=== PATIENT | female | born 1950 | race African-American/Black ===

== ENCOUNTER 2017-05-13 10:14 | Emergency (ER) | payer MEDICARE ==
[2017-05-13 11:05] LABS: #Eosinphils 0.3 thou/uL (0.0-0.7); #Lymphocytes 2.2 thou/uL (1.20-3.40); #Monocytes 0.4 thou/uL (0.11-0.59); #Neutrophils 2.9 thou/uL (1.40-6.50); %Basophils 0.7 % (0.0-1.0); %Eosinophils 4.6 % (0.0-10.0); %Lymphocytes 38.1 % (21.0-51.0); %Monocytes 6.5 % (0.0-10.0); Hematocrit 42.6 % (36.0-47.0); Mean Platelet Volume 7.4 fL (7.4-10.4); Red Blood Cell (RBC) Count 4.65 mill/uL (4.20-5.40); White Blood Cell (WBC) Count 5.8 thou/uL (4.8-10.8)
--- NOTE | 2017-05-13 11:23 | RAD ---
RADIOGRAPH CHEST 1 VIEW: Date: 05/13/2017 Time: 10:48 a.m. HISTORY: A 67-year-old female with chest tightness. COMPARISON: 03/28/2017 FINDINGS: Again noted are the sternotomy wires and the surgical clips overlying the left cardiac shadow. The cardiomediastinal silhouette is normal, with no cardiomegaly and no pulmonary vascular engorgement o r pulmonary edema. No pneumothorax. The lateral costophrenic angles are sharp. The hilar shadows are unremarkable. The previously demonstrated air space density at the right lung base has regresse d. Currently, there is mild residual infiltrate like density, and a small focal stellate component, which probably represents pulmonary scar tissue. IMPRESSION: 1. Small stellate density at the right lower lung zone, consistent with pulmonary scar. 2. This is surrounded by a mild infiltrate, which has improved compared to 03/28/2017. It is uncer tain whether this represents residua of improving previous infiltrate or whether this represents a r ecurrent or acute infiltrate. The former is slightly favored (unless the patient has a cough and fe sean). 3. Short interval follow-up chest radiograph is recommended in several days. 4. Status post coronary artery bypass graft surgery is evidence for coronary atherosclerotic disebeto POWERS [] POS: [facility]
[2017-05-13 12:00] LABS: ALT (SGPT) 14 U/L (8-55); AST (SGOT) 14 U/L (5-34); Alkaline Phosphatase 182 U/L (40-150); Anion Gap 9 mmol/L (10-20); BUN (Urea Nitrogen) 11 mg/dL (9.8-20.1); Bilirubin, Total 0.5 mg/dL (0.2-1.2); CK (CPK) 69 U/L (29-168); Calc. Creatinine Clearance 0 mL/min (70-130); Calcium 10.6 mg/dL (7.8-10.44); Carbon Dioxide 30 mmol/L (23-31); Chloride 102 mmol/L (98-107); Estimated GFR-MDRD 55; Globulin 3.7 g/dL (2.4-3.5); Protein, Total 8.4 g/dL (6.0-8.3)
[2017-05-13 12:04] LABS: Troponin I Less than 0.010 ng/mL (< 0.028)
--- OUTSIDE RECORDS SUMMARY | 2017-05-15 18:18 | XMS | Clinical Summary ---
:1950 Author Organization [facility] Address [address] [place] [address] Phone Care Team Providers Name Role Phone , Primary Care Provider Unavailable Allergies Not on File Current Medications Not on file Active Problems Not on file Social History Tobacco Use Types Packs/Day Years Used Date Never Assessed Sex Assigned at Date Recorded Not on file Last Filed Vital Signs Not on file Plan of Treatment Not on file Results Not on filefrom Last 3 Months
== END 2017-05-13 12:21 | disposition home or self-care (01) ==
LOC: ERS 10:14
DX: R07.2 Precordial pain (principal); R10.13 Epigastric pain; I10 Essential (primary) hypertension; I25.2 Old myocardial infarction; E78.5 Hyperlipidemia, unspecified; F17.210 Nicotine dependence, cigarettes, uncomplicated; Z79.82 Long term (current) use of aspirin; Z79.899 Other long term (current) drug therapy
CPT/HCPCS: 71010; 80053; 82550; 82553; 84484; 85025; 93005

== ENCOUNTER 2017-08-30 12:38 | Emergency (ER) | payer MEDICARE, OTHER ==
[2017-08-30 13:50] LABS: #Eosinphils 0.1 thou/uL (0.0-0.7); #Lymphocytes 1.4 thou/uL (1.20-3.40); #Monocytes 0.4 thou/uL (0.11-0.59); #Neutrophils 3.1 thou/uL (1.40-6.50); %Basophils 0.5 % (0.0-1.0); %Eosinophils 1.8 % (0.0-10.0); %Lymphocytes 27.8 % (21.0-51.0); %Monocytes 7.1 % (0.0-10.0); %Neutrophils 62.8 % (42.0-75.0); Hemoglobin 14.5 g/dL (12.0-16.0); Mean Corpuscular HGB CONC 33.3 g/dL (32.0-36.0); Platelet Count 184 thou/uL (130-400); RBC Distribution Width 13.1 % (11.5-14.5); Red Blood Cell (RBC) Count 4.99 mill/uL (4.20-5.40)
[2017-08-30 14:16] LABS: ALT (SGPT) 17 U/L (8-55); AST (SGOT) 23 U/L (5-34); Albumin 4.4 g/dL (3.4-4.8); Alkaline Phosphatase 121 U/L (40-150); Anion Gap 19 mmol/L (10-20); BUN (Urea Nitrogen) 26 mg/dL (9.8-20.1); Bilirubin, Total 0.4 mg/dL (0.2-1.2); Calc. Creatinine Clearance 0 mL/min (70-130); Calcium 9.8 mg/dL (7.8-10.44); Carbon Dioxide 22 mmol/L (23-31); Chloride 96 mmol/L (98-107); Estimated GFR-MDRD 43; Globulin 4.1 g/dL (2.4-3.5); Glucose 84 mg/dL (80-115); Potassium 4.1 mmol/L (3.5-5.1); Protein, Total 8.5 g/dL (6.0-8.3); Sodium 133 mmol/L (136-145)
== END 2017-08-30 17:21 | disposition left against medical advice (07) ==
LOC: ERS 12:38
DX: Z53.21 Procedure and treatment not carried out due to patient leaving prior to being seen by health care provider (principal)
CPT/HCPCS: 36415; 80053; 85025

== ENCOUNTER 2018-03-24 15:11 | Emergency (ER) | payer MEDICARE, OTHER ==
--- NOTE | 2018-03-24 15:44 | RAD ---
PA AND LATERAL OF THE CHEST: INDICATION: History of cough. COMPARISON: Prior exam dated 05/13/17. FINDINGS: There is stable postsurgical change of prior CABG. Mild cardiomegaly is stable. There is stable sca rring in the right lower lobe. No acute osseous abnormality is grossly evident. There is suspected bullous change involving the posterior aspect of the right lower lobe best seen on the lateral projec tion. This measures approximately 5 cm in size. IMPRESSION: Stable suspected scarring in the right lower lobe with associated bullous changes best seen on the la teral projection. No airspace consolidation to suggest acute pneumonia. There is stable mild cardio megaly. There are stable postsurgical changes of a prior coronary artery bypass graft. POS: [facility]
[2018-03-24] MEDS ORDERED: cloNIDine 0.1 MG TAB ONE (17:27)
== END 2018-03-24 19:10 | disposition home or self-care (01) ==
LOC: ERS 15:11
DX: J20.9 Acute bronchitis, unspecified (principal); I10 Essential (primary) hypertension; Z87.891 Personal history of nicotine dependence
CPT/HCPCS: 71046; 94640; J7620

== ENCOUNTER 2019-06-16 00:24 | Inpatient (IN) | payer MEDICARE ==
[2019-06-16] MEDS ORDERED: Pantoprazole 40 MG VIAL ONE (00:46)
[2019-06-16 01:00] LABS: #Basophils 0.1 thou/uL (0.0-0.2); #Eosinphils 0.2 thou/uL (0.0-0.7); #Monocytes 0.3 thou/uL (0.11-0.59); #Neutrophils 2.2 thou/uL (1.40-6.50); %Basophils 1.3 % (0.0-1.0); %Eosinophils 4.5 % (0.0-10.0); %Lymphocytes 41.6 % (21.0-51.0); %Monocytes 6.4 % (0.0-10.0); %Neutrophils 46.1 % (42.0-75.0); Hemoglobin 13.3 g/dL (12.0-16.0); Mean Corpuscular HGB CONC 32.8 g/dL (32.0-36.0); Mean Corpuscular Hemoglobin 29.1 pg (27.0-31.0); Mean Corpuscular Volume 88.6 fL (78.0-98.0); Mean Platelet Volume 8.5 fL (7.4-10.4); Platelet Count 213 thou/uL (130-400); RBC Distribution Width 12.6 % (11.5-14.5); Red Blood Cell (RBC) Count 4.58 mill/uL (4.20-5.40); White Blood Cell (WBC) Count 4.7 thou/uL (4.8-10.8)
[2019-06-16 01:06] LABS: Prothrombin Time 12.8 SEC (12.0-14.7)
[2019-06-16 01:22] LABS: PTT 22.6 SEC (22.9-36.1)
[2019-06-16 01:27] LABS: ALT (SGPT) 23 U/L (8-55); AST (SGOT) 28 U/L (5-34); Albumin 4.3 g/dL (3.4-4.8); Alkaline Phosphatase 177 U/L (40-110); Anion Gap 13 mmol/L (10-20); BUN (Urea Nitrogen) 14 mg/dL (9.8-20.1); Bilirubin, Total 0.3 mg/dL (0.2-1.2); Calc. Creatinine Clearance 0 mL/min (70-130); Calcium 9.1 mg/dL (7.8-10.44); Carbon Dioxide 23 mmol/L (23-31); Chloride 106 mmol/L (98-107); Estimated GFR-MDRD 46; Globulin 3.3 g/dL (2.4-3.5); Glucose 125 mg/dL (80-115); Potassium 3.8 mmol/L (3.5-5.1); Protein, Total 7.6 g/dL (6.0-8.3); Sodium 138 mmol/L (136-145)
[2019-06-16] MEDS ORDERED: Piperacillin/Tazobactam 4.5 GM VIAL ONE (03:28)
[2019-06-16] MEDS ORDERED: Bisacodyl 5 MG TAB PO PRN (04:33)
[2019-06-16] MEDS ORDERED: Acetaminophen 650 MG Suppository PR PRN (04:33)
[2019-06-16] MEDS ORDERED: Acetaminophen 325 MG TAB PO PRN (04:33)
[2019-06-16] MEDS ORDERED: Ondansetron PF 4 MG/2 ML Vial IVP PRN (04:33)
[2019-06-16] MEDS ORDERED: Vancomycin HCl 1 GM in Premix Bag 1 BAG IVPB SCH (04:45)
[2019-06-16 04:55] LABS: Hemoglobin 12.3 g/dL (12.0-16.0)
--- NOTE | 2019-06-16 05:06 | HP ---
PRIMARY CARE PROVIDER: Tereso Zaman MD CHIEF COMPLAINT: Coughing blood. HISTORY OF PRESENT ILLNESS: Ms. Telles is a pleasant 69-year-old lady, who was seen at [facility] on June 16, 2019. She reports that she coughed blood twice over the last couple of days. Her granddaughter also noticed that she had blood in her pants. She was encouraged to go to the emergency room by her granddaughter. The patient denies any chest pain or shortness of breath. She denies any fevers. She denies any abdominal pain. She reports that she coughed blood before she had heart attack a couple of years ago. REVIEW OF SYSTEMS: All systems were reviewed and found to be negative except for the pertinent positives mentioned above. PAST MEDICAL HISTORY: Coronary artery disease, hypertension, myocardial infarction, dyslipidemia. PAST SURGICAL HISTORY: Three-vessel coronary artery bypass graft and hysterectomy. SOCIAL HISTORY: The patient denies tobacco use or alcohol use. She is an ex-smoker. She denies recreational drug use. FAMILY HISTORY: Brother with pacemaker. ALLERGIES: NO KNOWN DRUG ALLERGIES. CURRENT MEDICATIONS: These need to be clarified, but the patient appears to be taking 1. Plavix 75 mg daily. 2. Pravastatin 40 mg daily. 3. Aspirin 81 mg daily. 4. Carvedilol 12.5 mg 2 times a day. PHYSICAL EXAMINATION: GENERAL: On examination, Ms. Telles is awake and alert, not in acute distress. VITAL SIGNS: Blood pressure is 172/85, pulse 78, respiratory rate 19, and oxygen saturation 99% on room air. She is afebrile. EYES: No scleral icterus, no conjunctival pallor. ENT: Moist mucosal membranes. No oropharyngeal erythema or exudates. NECK: Supple, nontender, trachea is midline. RESPIRATORY: Accessory muscles of breathing are not active. Chest wall movements are symmetric bilaterally. Lungs are clear to auscultation without wheeze, rhonchi, or crepitations. CARDIOVASCULAR: S1 and S2 are heard, regular. Peripheral pulses palpable. ABDOMEN: Soft, nontender, bowel sounds heard. NEUROLOGIC: Cranial nerves 2 through 12 are intact. MUSCULOSKELETAL: Power is 5/5 in all 4 extremities. SKIN: No rashes. LYMPHATIC: No cervical lymphadenopathy. PSYCHIATRIC: Normal mood, normal affect, the patient is oriented to person, place, and time. LABORATORY DATA: Ms. Telles's labs and investigations were reviewed. She had CT angiogram of the chest, which did not show any evidence of pulmonary embolism or thoracic aortic dissection. She had mild, up to 3 cm ectasia/aneurysm of ascending thoracic aorta. She had suspected right lower lobe consolidation/pneumonia with areas of necrosis/cavitation. She had multifocal areas, hazy opacity, right middle and bilateral lower lobes, possible areas, inflammation versus edema. She has leukopenia with 4700 white cells, of which 46% are neutrophils. Hemoglobin and platelet count are normal. INR is 1.0. Creatinine is elevated at 1.37, it was 1.48 on August 30, 2017. Alkaline phosphatase is elevated at 177. It was 121 on August 30, 2017, elevated at 182 on May 13, 2017. Chem-7 is otherwise unremarkable. Lactic acid is normal. ASSESSMENT AND PLAN: Ms. Telles is a pleasant 69-year-old lady, who was seen at [facility] on June 16, 2019. Her problem list includes: 1. Hemoptysis: Ms. Telles is presenting with hemoptysis, most likely secondary to pneumonia. She will be admitted to the hospital for further management. 2. Pneumonia: She has received vancomycin and Zosyn in the emergency room, which I will continue. Pulmonology service is being consulted for opinion and help with management. 3. Coronary artery disease: We will resume home medications once they are clarified. 4. Hypertension: Resume home medications, monitor vital signs and titrate antihypertensives as needed. 5. Dyslipidemia: Continue statin. 6. Coronary artery disease: Appears to be stable, the patient denies any chest pain. 7. Lower gastrointestinal bleed: The patient denies any abdominal pain, could be diverticular bleed versus hemorrhoidal. GI service is being consulted for opinion and help with management. We will recheck H and H. Many thanks for allowing me to participate in your patient's care. Please feel free to contact me with any questions or concerns. LEVEL OF RISK: Moderate. LEVEL OF COMPLEXITY: Moderate. Job ID: [id number]
[2019-06-16 05:16] VITALS: BMI 21.7
[2019-06-16] MEDS: hydrALAZINE 20 MG/ML VIAL SLOW IVP PRN (05:39)
[2019-06-16] MEDS ORDERED: Piperacillin/Tazobactam 4.5 GM in Sodium Chloride 0.9% 100 ML IVPB SCH (06:00)
[2019-06-16] MEDS ORDERED: FLU VACC TS2019-20(65YR UP)/PF 180 MCG/0.5 ML SYRINGE IM ONE (06:00)
--- NOTE | 2019-06-16 07:43 | CT ---
PRELIMINARY REPORT/[facility]/EMERGENCY AFTER HOURS PROCEDURE: PROCEDURE INFORMATION: Exam: CT Angiography Chest With Contrast Exam date and time: 06/16/2019 1:44 AM Age: 69 years old Clinical history: Cough with hemorrhage; Patient HX: 69f presents for evaluation of cough since yeste rday which she says is productive, sputum is bright red and bloody. PT also C/O mansi red blood in st ool and on her pants. PT says she came in because her granddaughter encouraged her. Endorses SOB. Pmhx includes cabg, mi. TECHNIQUE: Imaging protocol: Computed tomographic angiography of the chest with intravenous contrast. 3D rendering: MIP reconstructed images were created and reviewed. COMPARISON: No relevant prior studies available. FINDINGS: Pulmonary arteries: Adequate contrast enhancement of the pulmonary arteries. Aorta: No evidence of thoracic aortic dissection. Mild up to 3 cm ectasia/aneurysm of ascending thora cic aorta. Chronic atherosclerotic calcification of the vasculature. Lungs: Moderate linear and patchy air space disease in right lower lobe with area central cavitation/ necrosis. Multifocal areas hazy opacity right middle and bilateral lower lobes, possible areas inflam mation vs. edema. No evidence endobronchial lesion. Pleural space: No evidence of pneumothorax. Heart: Heart appears within normal limits, no pericardial effusion. No evidence of filling defects in the cardiac chambers. Lymph nodes: Few subcentimeter mediastinal lymph nodes. Bones/joints: Musculoskeletal structures appear intact. Multi-level degenerative changes involve the thoracic spine. Sternal sutures. Soft tissues: Unremarkable. IMPRESSION: 1. No evidence of pulmonary embolism. 2. No evidence of thoracic aortic dissection. 3. 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 4. Suspected right lower lobe consolidation/ pneumonia with areas necrosis/cavitation. 5. Multifocal areas hazy opacity right middle and bilateral lower lobes, possible areas inflammation vs. edema. Thank you for allowing us to participate in the care of your patient. Dictated and Authenticated by: Rodger Ruiz MD 06/16/2019 2:21 AM Central Time ([place] & [place]) FINAL REPORT EMERGENCY AFTER HOURS CTA CHEST: FINDINGS/IMPRESSION: I agree with the findings and impression given in the preliminary report per [facility] physician. 1. No evidence of pulmonary thromboembolism. 2. Right lower lobe infiltrate with areas of cavitation. POS: [facility]
[2019-06-16] MEDS ORDERED: Docusate 100 MG CAP PO PRN (09:42)
[2019-06-16] MEDS ORDERED: Labetalol HCl 100 MG/20 ML VIAL SLOW IVP PRN (09:42)
[2019-06-16] MEDS ORDERED: diphenhydrAMINE 25 MG CAP PO PRN (09:42)
[2019-06-16] MEDS ORDERED: Melatonin 3 MG TAB PO PRN (09:42)
[2019-06-16] MEDS ORDERED: Benzonatate 100 MG CAP PO PRN (09:42)
[2019-06-16] MEDS ORDERED: Lisinopril 5 MG TAB PO SCH ×2 (09:44→10:00)
[2019-06-16] MEDS ORDERED: Carvedilol 6.25 MG TAB PO SCH (09:45)
[2019-06-16] MEDS: Piperacillin/Tazobactam 3.375 GM in Sodium Chloride 0.9% 100 ML IVPB SCH ×2 (11:55→17:48)
[2019-06-16] MEDS ORDERED: Iopamidol-370 76% 500 ML 1 ML ONE (12:43)
[2019-06-16] MEDS ORDERED: predniSONE 20 MG TAB PO SCH (13:15)
[2019-06-16 13:26] LABS: Hemoglobin 12.4 g/dL (12.0-16.0)
--- NOTE | 2019-06-16 13:48 | CON ---
DATE OF CONSULTATION: 06/16/2019 CHIEF COMPLAINT: Rectal bleeding. HISTORY OF PRESENT ILLNESS: Ms. Telles is a 69-year-old female, who was brought to the ER by her granddaughter. Her primary complaint on admission was coughing up blood for the last 2 days prior to admission. She reports having chronic cough for the last several weeks. She denies any weight loss, fever, night sweats, or chills. Reportedly prior to admission, her granddaughter noted that her pants were stained with blood. The patient herself was not aware that she had any rectal bleeding or lower GI bleed. She has not had any nausea or vomiting. She does report some abdominal soreness with coughing, but nothing localizing or significant. She reports having normal bowel function with occasional bright red blood bleeding attributed to hemorrhoids. She never had screening colonoscopy in the past. There is no previous gastrointestinal problem. PAST MEDICAL HISTORY: 1. Coronary artery disease, status post bypass surgery. 2. Hypertension. 3. Hyperlipidemia. ALLERGIES: NO KNOWN DRUG ALLERGY. MEDICATIONS AT HOME: Include: 1. Aspirin. 2. Plavix. 3. Coreg. 4. Pravastatin. SOCIAL HISTORY: The patient lives with her and 2 grandchildren. She does smoke a pack a week. Occasional beer, once a week. FAMILY HISTORY: Negative for any known GI problem, liver disease, or GI malignancy. REVIEW OF SYSTEMS: Ten-point review of systems did not show any other reported symptoms or problem. PHYSICAL EXAMINATION: VITAL SIGNS: Temperature is 97.2, blood pressure 162/80, pulse of 76. GENERAL: She is alert and in no distress. HEENT: Shows anicteric sclerae. Oropharynx clear and moist. NECK: Supple. CV: Shows normal S1 and S2. Regular rate and rhythm. CHEST: Shows breath sounds. Poor excursion. ABDOMEN: Soft and nontender. There is no distention. No tympany. She has active bowel sounds. There is no appreciable organomegaly. EXTREMITIES: Show no edema. LABORATORY DATA: WBCs 4.7, hemoglobin 13.3, hematocrit 40.6, and platelet count of 213. Electrolytes within normal range. Creatinine 1.37. LFTs are normal. Alkaline phosphatase 177. IMPRESSION: 1. Reported rectal bleeding prior to admission as noted by her granddaughter without the patient's awareness. She has not had any further bleeding since admission, overnight, or this morning. She does have occasional bright red rectal bleeding that she attributed to hemorrhoids. 2. Hemoptysis with x-ray showing right lower lobe consolidation and areas of necrosis, cavitation, consistent with pneumonia. 3. Chest CT angiogram with a 3 cm ascending thoracic aortic aneurysm without dissection. RECOMMENDATION: 1. Proceed with colonoscopy as the patient never had prior colon screening. Prep today with procedure tomorrow. 2. Indication including risks discussed with Neema Telles. All questions answered. 3. Further recommendation to follow pending endoscopic finding. Job ID: [id number]
--- NOTE | 2019-06-16 14:07 | PDOC.EVN ---
Event Note - Event Note Event Note: Seen and examined. Patient states overall that she is feeling better. Has noticed some blood in stool, though she states she has hemorrhoids. Patient denies had prior history of colonoscopy. Hold anti platelet therapy until after C-scope, Hgb not significantly diminished. Patient breathing well on room air, though there are faint wheezing in the right lower lung field. Pulmonology evaluation pending, possible cavitary lesion on imaging.
--- NOTE | 2019-06-16 16:07 | CON ---
DATE OF CONSULTATION: 06/16/2019 SERVICE: Pulmonary Medicine. REASON FOR CONSULTATION: Hemoptysis. HISTORY OF PRESENT ILLNESS: The patient is a 69-year-old female with past medical history significant for essentially nothing. About 2 months ago, she started having cough on a daily basis and was bringing up yellow phlegm. She never felt sick in any way. That being said, this is new for her. She denies having any acid reflux type symptoms. Two days ago, she started having a little nausea and vomited on one occasion. She did not think much of that. This seemed to clear, she is able to keep down food afterwards. That being said, on the day of presentation, she started having massive amounts of hemoptysis. She was swallowing some of that blood and also vomiting. Sometimes, she had a little bit of bloody emesis. It is not clear if this is all stemming from the lung or the GI tract, perhaps both. She denies any hot, red, or swollen joints, rashes, arthritis, arthralgias, ever having hematuria, pleural effusion, or pericardial effusion. She currently denies any fevers or chills. Since she has been in the hospital, she was put on some antibiotics. She actually started to feel a little bit better. She is still coughing, but not bringing up any phlegm any longer. PAST MEDICAL HISTORY: 1. Coronary artery disease. 2. Hypertension. 3. Dyslipidemia. 4. History of myocardial infarction. PAST SURGICAL HISTORY: 1. Coronary artery bypass graft x3 vessels. 2. Hysterectomy. SOCIAL HISTORY: She smokes on a daily basis. She denies any recreational drug use or alcohol. She has no exposure to chemicals, dust, asbestos, or tuberculosis. FAMILY HISTORY: Noncontributory. ALLERGIES: NO KNOWN DRUG ALLERGIES. MEDICATIONS: List of her inpatient medications was reviewed. No specific updates were made at this time. REVIEW OF SYSTEMS: General; head, ears, eyes, nose, and throat; cardiovascular; respiratory; GI; ; musculoskeletal; neurologic; and skin is negative except as mentioned is the HPI. PHYSICAL EXAMINATION: VITAL SIGNS: Afebrile, pulse 69, blood pressure 150/79, respirations 16, saturation 98% currently on room air. GENERAL: The patient is awake and alert, in no apparent distress. LUNGS: Decent air entry. There are some rhonchi on the right. No prolonged expiratory phase or wheezing is appreciated. HEART: Normal rate. Regular. ABDOMEN: Soft, nontender, and nondistended. Bowel sounds are positive. MUSCULOSKELETAL: No cyanosis or clubbing. There is no pitting in the bilateral lower extremities. NEUROLOGIC: Grossly nonfocal. LABORATORY DATA: Hemoglobins are stable at 12.4 and WBC 4.7. Differential remains normal. INR 1.0. Creatinine 1.37. Basic metabolic profile, liver function studies, and lactate are unremarkable. IgG 1142, IgA 268, and IgM 36, all falling within the normal limits. IMAGING STUDIES: CTA of the chest demonstrates no evidence of a PE. She has bronchiectasis in the bibasilar regions, which is a little bit worse on the right compared to the left. There is an infiltrate on the right posterior lung segments. The bronchiectasis seems to be quite a bit more severe in that region, there may be a cavitary lesion present. There is a small amount of infiltrate. Subtle ground-glass opacifications are present in the centrilobular distribution in that area. That being said, she has a massively dilated left atrium, and subtle evidence of volume overload including interstitial fullness, and prominent intrapulmonary lymph nodes/small pulmonary nodules scattered throughout bilateral lung ramos. ASSESSMENT: 1. Massive hemoptysis. 2. Bronchiectasis with acute exacerbation. 3. Pulmonary cavity. 4. Community-acquired pneumonia, possible. 5. Gastrointestinal bleed? DISCUSSION AND PLAN: We will follow up the results of the colonoscopy. That being said, we will put her through a thorough workup for both bronchiectasis and cavitary lung disease. This includes an IgE, alpha-1 antitrypsin, rheumatoid factor, osborne-ANCA, Fungitell, antibody panel, and Aspergillus studies. She will likely require repeat CT of the chest in 4 to 6 weeks in the outpatient setting. If this thing fails to clear, a bronchoscopy will certainly need to be considered. I agree with current antibiotic selection. We will give her a brief course of steroids to help decrease inflammation of any airways that may have become unroofed. My suspicion is that we will be looking at a bronchoscopy at a followup appointment, but I would like to see the results of the colon 1st. If she truly has both lung and GI bleeding that present at the same time, certainly vasculitides would need to be considered. As such, urine will be collected looking for hematuria and casts. 70 minutes have been devoted to this patient in various activities. I personally reviewed all imaging studies and laboratory data noted within this document. For fifty percent of this time, I was interacting with the patient at the bedside or coordinating care with the care team. For the remainder of the time I was immediately available to the patient in the hospital unit. Job ID: [id number] MTDD
[2019-06-16 17:32] LABS: Bilirubin Negative (Negative); Blood, Urine 1+ (Negative); Clarity Clear (Clear); Glucose, Urine (Dipstick) Normal (Negative); Leukocyte 250 Leu/uL (Negative); Nitrite Negative (Negative); Protein, Urine (Dipstick) Negative (Neg-Trace); Squamous Epithelial 0-3 HPF (0-3); Urobilinogen Normal mg/dL (Less than 2)
[2019-06-16 17:35] LABS: Bacteria/HPF 1+ HPF (None Seen)
[2019-06-16 17:36] LABS: Urine Culture Reflex Yes Yes
[2019-06-16] MEDS ORDERED: GoLYTELY 4,000 ml Bottle PO SCH (18:00)
[2019-06-16] MEDS ORDERED: Pravastatin Sodium 40 MG TAB PO SCH (21:00)
[2019-06-16] MEDS ORDERED: Non-Formulary Item 1 EACH (Carvedilol [Coreg] 12.5 MG) PO SCH (21:00)
[2019-06-16] MEDS: Carvedilol 6.25 MG TAB PO SCH (21:03)
[2019-06-16] MEDS: Atorvastatin Calcium 10 MG TAB PO SCH (21:03)
[2019-06-16 21:25] LABS: Hemoglobin 12.6 g/dL (12.0-16.0)
[2019-06-17] MEDS: Piperacillin/Tazobactam 3.375 GM in Sodium Chloride 0.9% 100 ML IVPB SCH ×4 (00:07→17:02)
[2019-06-17] MEDS: hydrALAZINE 20 MG/ML VIAL SLOW IVP PRN ×2 (00:42→17:05)
[2019-06-17] MEDS: Lisinopril 5 MG TAB PO SCH (05:40)
[2019-06-17] MEDS: predniSONE 20 MG TAB PO SCH (05:40)
[2019-06-17] MEDS: Carvedilol 6.25 MG TAB PO SCH ×2 (05:41→20:18)
[2019-06-17 05:47] LABS: #Monocytes 0.3 thou/uL (0.11-0.59); #Neutrophils 7.7 thou/uL (1.40-6.50); %Basophils 0.4 % (0.0-1.0); %Eosinophils 0.2 % (0.0-10.0); %Lymphocytes 11.2 % (21.0-51.0); %Monocytes 3.4 % (0.0-10.0); %Neutrophils 84.8 % (42.0-75.0); Hemoglobin 11.7 g/dL (12.0-16.0); Mean Corpuscular HGB CONC 32.3 g/dL (32.0-36.0); Mean Corpuscular Hemoglobin 28.1 pg (27.0-31.0); Mean Corpuscular Volume 87.1 fL (78.0-98.0); Mean Platelet Volume 8.7 fL (7.4-10.4); Platelet Count 192 thou/uL (130-400); RBC Distribution Width 12.5 % (11.5-14.5); Red Blood Cell (RBC) Count 4.18 mill/uL (4.20-5.40)
[2019-06-17] MEDS ORDERED: Vancomycin HCl 750 MG in Sodium Chloride 0.9% 250 ML 250 ML IVPB SCH (06:00)
[2019-06-17 06:03] LABS: Anion Gap 14 mmol/L (10-20); BUN (Urea Nitrogen) 9 mg/dL (9.8-20.1); Calc. Creatinine Clearance 43 mL/min (70-130); Calcium 9.4 mg/dL (7.8-10.44); Carbon Dioxide 23 mmol/L (23-31); Chloride 106 mmol/L (98-107); Estimated GFR-MDRD 64; Glucose 140 mg/dL (80-115); Potassium 3.6 mmol/L (3.5-5.1); Sodium 139 mmol/L (136-145)
--- NOTE | 2019-06-17 07:00 | PRG ---
DATE OF SERVICE: 06/17/2019 SERVICE: Pulmonary Medicine. INTERVAL HISTORY: The patient is breathing comfortably. She had a bowel prep yesterday. She cleared out for the most part, but towards the end, started having a little bit of blood. She could not tell if it is hemorrhoidal bleeding or whether or not it was actually part of the stool. She denies any fevers or chills. Otherwise, there has been no interval change to her condition. She has not had any recurrent hemoptysis present. PHYSICAL EXAMINATION: VITAL SIGNS: Afebrile, pulse 71, blood pressure 133/75, respirations 19, saturation 98%, currently on room air. GENERAL: The patient is awake and alert, in no apparent distress. LUNGS: Good air entry bilaterally. Rhonchi has improved on the right. No prolonged expiratory phase or wheezing is appreciated. HEART: Normal rate regular. ABDOMEN: Soft, nontender, nondistended, bowel sounds are positive. MUSCULOSKELETAL: No cyanosis or clubbing. There is no pitting in the bilateral lower extremities. NEUROLOGIC: Grossly nonfocal. LABORATORY DATA: Hemoglobin 11.7 and gently downtrending. Basic metabolic profile is otherwise unremarkable. Neutrophil count has increased, likely steroid effect. INR 1.0. Creatinine has improved to 1.03. Otherwise, basic metabolic profile is unremarkable. Urinalysis was significant for minimal red blood cells, and 11 to 12 white blood cells. Of note, this was a clean catch. The leukocyte esterase was marginally elevated, but nitrites were negative. Bacteria was 1+. There were very few epithelial cells present. Multiple laboratories are currently pending. ASSESSMENT: 1. Massive hemoptysis. 2. Bronchiectasis with acute exacerbation. 3. Pulmonary cavity. 4. Community acquired pneumonia, possible. 5. Gastrointestinal bleed, possible. DISCUSSION AND PLAN: The patient is going to go for an EGD and colonoscopy today. Workup for the bronchiectasis and cavitary disease is pending including IgE, alpha-1 antitrypsin, rheumatoid factor, osborne ANCA, Fungitell, fungal antibody panel, and Aspergillus studies. I will see if I can coordinate a bronchoscopy with the already scheduled procedures. Ultimately, a repeat CT of the chest is going to be required in 4 to 6 weeks to see whether or not any of these lesions persist, particularly if we do not get any answer with any of these studies or procedures. Job ID: [id number]
[2019-06-17] MEDS ORDERED: Lidocaine 1% (PF) 30 ML VIAL ONE (07:16)
[2019-06-17] MEDS ORDERED: Clopidogrel Bisulfate 75 MG TAB PO SCH (09:00)
[2019-06-17] MEDS ORDERED: Aspirin Chewable 81 MG TAB PO SCH (09:00)
[2019-06-17] MEDS ORDERED: Rocuronium Bromide 10 MG/ML (10ML VIAL) ONE (09:55)
[2019-06-17] MEDS ORDERED: Succinylcholine Chloride 20 MG/ML 10 ml SYRINGE FS ONE (09:55)
[2019-06-17] MEDS ORDERED: Lidocaine 1% PF 5 ML VIAL ONE (09:55)
[2019-06-17] MEDS ORDERED: PROPOFOL 200 MG/20 ML VIAL ONE (09:55)
[2019-06-17] MEDS ORDERED: Promethazine HCl 25 MG/ML VIAL SLOW IVP PRN (10:44)
[2019-06-17] MEDS ORDERED: Promethazine HCl 25 MG/ML VIAL IM PRN (10:44)
[2019-06-17] MEDS ORDERED: Ondansetron HCl/PF 4 MG/2 ML Vial IVP PRN (10:44)
[2019-06-17] MEDS ORDERED: Lidocaine 2% Jelly 5 ML TUBE ONE (11:15)
--- NOTE | 2019-06-17 12:57 | PRG ---
DATE OF SERVICE: 06/17/2019 Ms. Telles had a colonoscopy today that showed internal-external hemorrhoids. This is a source of her rectal bleeding. I have recommended conservative therapy with fiber and steroid suppository. For history of ongoing hemorrhage, elective hemorrhoidectomy would be the consideration. At this time, we will sign off. If I can be of any further assistance, please do not hesitate to contact me. Job ID: [id number]
[2019-06-17 14:04] LABS: BF Color Red; Body Fluid Source Bronchial Washings; Clarity Cloudy/Turbid (Clear)
[2019-06-17 14:05] LABS: BF RBC Count - Manual 15750 /cumm; BF WBC/Nonhematics Ct. - Manua 721 /cumm; Tube # EDTA
[2019-06-17 14:21] LABS: BF Segmented Neutrophils 55 %; Cell Count Non Hematic 13 %; Eosinophils 4 %; Lymphocytes 28 %
--- NOTE | 2019-06-17 14:21 | PDOC.HOSPP ---
- Subjective Subjective: Seen and examined. Patient states that she tolerated bowel prep and did have significant stool output. Patient states that she had not eaten for days prior to this so there was not much stool to come out. Patient breathing well on room air. Denies pain. All questions answered in detail. - Objective Vital Signs & Weight: Vital Signs (12 hours) Temp Pulse BP BP Pulse Ox 06/17/19 09:00 136/84 06/17/19 08:00 98 06/17/19 07:33 97.6 F 06/17/19 05:41 161/82 H 06/17/19 05:40 91 161/82 H 06/17/19 03:56 98.0 F Weight Weight 115 lb 5 oz Most Recent Monitor Data Heart Rate from ECG 87 NIBP 139/77 NIBP BP-Mean 97 Respiration from ECG 19 SpO2 100 I&O: 06/16/19 06/17/19 06/18/19 06:59 06:59 06:59 Intake Total 2089 Balance 2089 Result Diagrams: 06/18/19 04:11 06/18/19 04:11 Radiology Reviewed by me: Yes Hospitalist ROS - Review of Systems All other systems reviewed; all pertinent +/- noted in HPI/Subj - Medication Medications: Active Medications Generic Name Dose Route Start Last Admin Trade Name Freq PRN Reason Stop Dose Admin Atorvastatin Calcium 10 mg 06/16/19 21:00 06/16/19 21:03 Lipitor PO 10 mg HS ARINA Administration Carvedilol 12.5 mg 06/16/19 21:00 06/17/19 05:41 Coreg PO 12.5 mg BID ARINA Administration Hydralazine HCl 10 mg 06/16/19 04:49 06/17/19 00:42 Apresoline SLOW IVP 10 mg Q6H PRN Administration SBP Greater Than 170 Vancomycin HCl 750 mg/ Sodium 250 mls @ 250 mls/hr 06/17/19 06:00 06/17/19 05 :40 Chloride IVPB 250 mls Q24HR ARINA Administration Piperacillin Sod/Tazobactam 100 mls @ 200 mls/hr 06/16/19 12:00 06/17/19 13: 20 Sod 3.375 gm/ Sodium Chloride IVPB 100 mls Q6HR ARINA Administration Lisinopril 5 mg 06/17/19 09:00 06/17/19 05:40 Zestril PO 5 mg DAILY ARINA Administration Prednisone 40 mg 06/17/19 08:00 06/17/19 05:40 Prednisone PO 06/21/19 08:01 40 mg QAM-WM ARINA Administration Sodium Chloride 10 ml 06/16/19 09:00 06/17/19 08:55 Flush - Normal Saline IVF 10 ml Q12HR ARINA Administration - Exam General Appearance: NAD, awake alert Eye: PERRL ENT: normocephalic atraumatic, moist mucosa Neck: supple, symmetric, no JVD, no lymphadenopathy Heart: RRR, no murmur, no gallops, no rubs Respiratory: CTAB, no rales, no ronchi, normal chest expansion, wheezes (Faint right lower lung field) Gastrointestinal: soft, non-tender, no guarding, no rigidity Extremities: no edema Skin: no lesions, no rashes Neurological: cranial nerve grossly intact, no focal deficits Musculoskeletal: normal strength Psychiatric: normal affect, A&O x 3 Hosp A/P (1) Normocytic anemia Code(s): D64.9 - ANEMIA, UNSPECIFIED Status: Acute (2) Bronchiectasis Code(s): J47.9 - BRONCHIECTASIS, UNCOMPLICATED Status: Acute (3) Pneumonia Code(s): J18.9 - PNEUMONIA, UNSPECIFIED ORGANISM Status: Acute (4) CKD (chronic kidney disease) stage 2, GFR 60-89 ml/min Code(s): N18.2 - CHRONIC KIDNEY DISEASE, STAGE 2 (MILD) Status: Chronic (5) Chronic diastolic heart failure Code(s): I50.32 - CHRONIC DIASTOLIC (CONGESTIVE) HEART FAILURE Status: Chronic (6) Dyslipidemia Code(s): E78.5 - HYPERLIPIDEMIA, UNSPECIFIED Status: Chronic (7) Hypertension Code(s): I10 - ESSENTIAL (PRIMARY) HYPERTENSION Status: Chronic (8) Tobacco abuse Code(s): Z72.0 - TOBACCO USE Status: Chronic - Plan Plan: IMCU, stable for Med/ tel gastroenterology consultation, recommendations appreciated pulmonology consultation, recommendations appreciated patient with G.I. bleeding, may require endoscopy for definitive diagnosis and treatment of G.I. bleeding status post bowel prep on 06/17/2019 patient would bronchiectasis and cavitary lesion on the right lower lobe seen on imaging Bronchiectasis work up ongoing per Pulm Continue ABX blood pressure control DVT prophylaxis hold antiplatelet therapy/ anticoagulation in the setting of G.I. bleeding continue other home medications as able
--- NOTE | 2019-06-17 15:51 | OP ---
DATE OF PROCEDURE: 06/17/2019 PREPROCEDURE DIAGNOSIS: Bright red rectal bleeding. POSTPROCEDURE DIAGNOSIS: Internal and external hemorrhoids. ANESTHESIA: TIVA. RECOMMENDATIONS: 1. Daily fiber supplementation and Anusol suppositories. 2. Consider repeat colonoscopy for screening purposes in 10 years depending on health at that time. PROCEDURE IN DETAIL: After the patient was informed of the risks, benefits, and possible complications of endoscopy including perforation, bleeding, reaction to medication, and aspiration, informed consent was obtained. The patient was brought to endoscopy suite, where she was sedated in gradual fashion. Once she was comfortable, rectal exam was performed. The endoscope was inserted into the anal canal through the colon to the cecum, which was identified by the ileocecal valve and appendiceal orifice. The terminal ileum was entered and found to be normal. The scope was then slowly removed. There was good visualization of the mucosa with no mass lesions or AV malformations. There were no polyps or lesions. Retroflexed views revealed internal hemorrhoids. The scope was removed. The patient tolerated the procedure well. There were no complications. Job ID: [id number]
--- NOTE | 2019-06-17 18:03 | OP ---
DATE OF PROCEDURE: 06/17/2019 SERVICE: Pulmonary Medicine. PROCEDURES PERFORMED: Fiberoptic bronchoscopy with: 1. Visual airway inspection. 2. Endobronchial brushing from the right lower lobe. 3. Bronchoalveolar lavage from the right lower lobe. 4. Transbronchial biopsies from the right lower lobe. PREPROCEDURE DIAGNOSIS: Pulmonary cavity/infiltrate. POSTPROCEDURE DIAGNOSIS: Pulmonary cavity/infiltrate. MEDICATIONS USED: Please refer to Anesthesia documentation. PREANESTHESIA ASSESSMENT: H and P had been performed. The patient's medications and allergies were reviewed. Informed consent was obtained after discussing the risks, benefits, and rationale for performing the procedure as well as alternative options. DESCRIPTION OF PROCEDURE: A time-out was performed identifying the correct procedure and patient with name and date of . A diagnostic fiberoptic bronchoscope was introduced through the 8.0 endotracheal tube. The bronchoscope was advanced into the trachea, where a tracheobronchial tree inspection was carried out. There was clear identification of the right upper lobe, right middle lobe, right lower lobe, left upper lobe, lingula, and left lower lobe. There were multiple aberrant segments coming out of the right lower lobe. Some old blood was in the lateral and posterior segments of the right lower lobe. Endobronchial brushings were performed under fluoroscopic guidance. A BAL was then obtained from both the lateral and posterior segments of the right lower lobe. Endobronchial biopsies were then obtained from the same segments. Hemostasis was verified, and the bronchoscope was subsequently removed from the patient. Postprocedure fluoroscopy did not demonstrate a pneumothorax. FINDINGS: 1. No obvious endobronchial disease was identified. Secretions were minimal. 2. Dried blood was emanating from the lateral basal and posterobasal segments of the right lower lobe. SPECIMENS OBTAINED: 1. Pathology on BAL, brushings, transbronchial biopsy. 2. Microbiology on BAL. COMPLICATIONS: None. ESTIMATED BLOOD LOSS: 5 mL. FLUOROSCOPY TIME: 3.5 minutes. DISPOSITION: The patient will transition back to the floor when she recovers from anesthesia. Job ID: [id number]
[2019-06-17] MEDS: Atorvastatin Calcium 10 MG TAB PO SCH (20:18)
[2019-06-17] MEDS: Hydrocortisone Acetate 25 MG Suppository PR SCH (21:53)
[2019-06-18] MEDS: Piperacillin/Tazobactam 3.375 GM in Sodium Chloride 0.9% 100 ML IVPB SCH ×3 (01:13→12:23)
[2019-06-18] MEDS: hydrALAZINE 20 MG/ML VIAL SLOW IVP PRN (04:14)
[2019-06-18 05:09] LABS: #Eosinphils 0.1 thou/uL (0.0-0.7); #Lymphocytes 1.8 thou/uL (1.20-3.40); #Monocytes 0.4 thou/uL (0.11-0.59); #Neutrophils 8.4 thou/uL (1.40-6.50); %Basophils 0.3 % (0.0-1.0); %Eosinophils 0.6 % (0.0-10.0); %Lymphocytes 16.7 % (21.0-51.0); %Monocytes 4.2 % (0.0-10.0); %Neutrophils 78.2 % (42.0-75.0); Hemoglobin 10.7 g/dL (12.0-16.0); Mean Corpuscular Hemoglobin 29.1 pg (27.0-31.0); Mean Corpuscular Volume 88.3 fL (78.0-98.0); Mean Platelet Volume 8.9 fL (7.4-10.4); Platelet Count 167 thou/uL (130-400); RBC Distribution Width 12.7 % (11.5-14.5); Red Blood Cell (RBC) Count 3.69 mill/uL (4.20-5.40); White Blood Cell (WBC) Count 10.7 thou/uL (4.8-10.8)
[2019-06-18 05:19] LABS: Vancomycin, Trough 6.1 ug/mL
[2019-06-18 05:28] LABS: Anion Gap 8 mmol/L (10-20); BUN (Urea Nitrogen) 11 mg/dL (9.8-20.1); Calc. Creatinine Clearance 41 mL/min (70-130); Calcium 8.6 mg/dL (7.8-10.44); Carbon Dioxide 28 mmol/L (23-31); Chloride 111 mmol/L (98-107); Estimated GFR-MDRD 60; Glucose 112 mg/dL (80-115); Sodium 143 mmol/L (136-145)
[2019-06-18] MEDS: Vancomycin HCl 750 MG in Sodium Chloride 0.9% 250 ML 250 ML IVPB SCH ×2 (06:08→17:31)
[2019-06-18] MEDS: Carvedilol 6.25 MG TAB PO SCH ×2 (08:19→21:41)
[2019-06-18] MEDS: predniSONE 20 MG TAB PO SCH (08:19)
[2019-06-18] MEDS: Hydrocortisone Acetate 25 MG Suppository PR SCH ×2 (08:20→21:42)
[2019-06-18] MEDS: Citrucel 500 MG TAB PO SCH (08:29)
[2019-06-18] MEDS: Lisinopril 5 MG TAB PO SCH ×2 (08:31→08:33)
--- NOTE | 2019-06-18 13:15 | PDOC.HOSPP ---
- Subjective Subjective: Seen and examined. Clinically improving on maximal medical therapy. Afebrile. Patient responding to IV antibiotics. Patient tolerated colonoscopy and bronchoscopy please see for operative reports for details. - Objective Vital Signs & Weight: Vital Signs (12 hours) Temp Pulse Resp BP BP Pulse Ox 06/18/19 11:17 97.9 F 75 20 157/69 H 98 06/18/19 10:56 142/66 H 06/18/19 08:33 78 189/87 H 06/18/19 08:31 78 06/18/19 08:19 189/87 H 06/18/19 08:00 98 F 78 16 189/87 H 100 06/18/19 05:42 78 18 159/70 H 06/18/19 04:14 83 177/88 H 06/18/19 03:20 97.8 F 75 24 H 177/74 H 100 Weight Weight 115 lb 5 oz Most Recent Monitor Data Heart Rate from ECG 81 NIBP 149/61 NIBP BP-Mean 90 Respiration from ECG 18 SpO2 99 I&O: 06/17/19 06/18/19 06/19/19 06:59 06:59 06:59 Intake Total 2089 1260 120 Balance 2089 1260 120 Result Diagrams: 06/18/19 04:11 06/18/19 04:11 Radiology Reviewed by me: Yes Hospitalist ROS - Review of Systems All other systems reviewed; all pertinent +/- noted in HPI/Subj - Medication Medications: Active Medications Generic Name Dose Route Start Last Admin Trade Name Freq PRN Reason Stop Dose Admin Atorvastatin Calcium 10 mg 06/16/19 21:00 06/17/19 20:18 Lipitor PO 10 mg HS ARINA Administration Carvedilol 12.5 mg 06/16/19 21:00 06/18/19 08:19 Coreg PO 12.5 mg BID ARINA Administration Hydralazine HCl 10 mg 06/16/19 04:49 06/18/19 04:14 Apresoline SLOW IVP 10 mg Q6H PRN Administration SBP Greater Than 170 Hydrocortisone Acetate 25 mg 06/17/19 21:00 06/18/19 08:20 Anusol-Hc CT 25 mg BID ARINA Administration Piperacillin Sod/Tazobactam 100 mls @ 200 mls/hr 06/16/19 12:00 06/18/19 12: 23 Sod 3.375 gm/ Sodium Chloride IVPB 100 mls Q6HR ARINA Administration Vancomycin HCl 750 mg/ Sodium 250 mls @ 250 mls/hr 06/18/19 06:00 06/18/19 06 :08 Chloride IVPB 250 mls 0600,1800 ARINA Administration Lisinopril 10 mg 06/18/19 09:00 06/18/19 08:33 Zestril PO 10 mg DAILY ARINA Administration Methylcellulose 500 mg 06/18/19 09:00 06/18/19 08:29 Citrucel PO 500 mg DAILY ARINA Administration Prednisone 40 mg 06/17/19 08:00 06/18/19 08:19 Prednisone PO 06/21/19 08:01 40 mg QAM-WM ARINA Administration Sodium Chloride 10 ml 06/16/19 09:00 06/18/19 08:20 Flush - Normal Saline IVF 10 ml Q12HR ARINA Administration - Exam General Appearance: NAD, awake alert Eye: anicteric sclera ENT: normocephalic atraumatic, moist mucosa Neck: supple, symmetric, no lymphadenopathy Heart: no murmur, no gallops, no rubs Respiratory: no rales, no ronchi, normal chest expansion, wheezes (Right lower lobe wheezing is mild) Gastrointestinal: soft, non-tender, non-distended, no guarding, no rigidity Extremities: no edema Skin: no lesions, no rashes Neurological: cranial nerve grossly intact, no focal deficits Musculoskeletal: normal strength, no muscle wasting Psychiatric: normal affect, A&O x 3 Hosp A/P (1) Normocytic anemia Code(s): D64.9 - ANEMIA, UNSPECIFIED Status: Acute (2) Bronchiectasis Code(s): J47.9 - BRONCHIECTASIS, UNCOMPLICATED Status: Acute (3) Pneumonia Code(s): J18.9 - PNEUMONIA, UNSPECIFIED ORGANISM Status: Acute (4) CKD (chronic kidney disease) stage 2, GFR 60-89 ml/min Code(s): N18.2 - CHRONIC KIDNEY DISEASE, STAGE 2 (MILD) Status: Chronic (5) Chronic diastolic heart failure Code(s): I50.32 - CHRONIC DIASTOLIC (CONGESTIVE) HEART FAILURE Status: Chronic (6) Dyslipidemia Code(s): E78.5 - HYPERLIPIDEMIA, UNSPECIFIED Status: Chronic (7) Hypertension Code(s): I10 - ESSENTIAL (PRIMARY) HYPERTENSION Status: Chronic (8) Tobacco abuse Code(s): Z72.0 - TOBACCO USE Status: Chronic - Plan Plan: IMCU, stable for Med/ tel gastroenterology consultation, recommendations appreciated pulmonology consultation, recommendations appreciated S/p C-scope on 06/17 - see full report for details - internal and external hemorrhoids as cause of bleeding S/p Bronchoscopy on 06/17 - see full report for details patient would bronchiectasis and cavitary lesion on the right lower lobe seen on imaging Continue ABX, de escalate as able per pulm blood pressure control DVT prophylaxis Restart antiplatelet therapy/ anticoagulation - not true G.I. bleeding with hemorrhoids continue other home medications as able
--- NOTE | 2019-06-18 15:54 | PRG ---
DATE OF SERVICE: 06/18/2019 SUBJECTIVE: Hannah Telles has no complaints. She denies coughing up any more blood. She is still on IV Zosyn. I have recommended that we switch her to p.o. medications today. She is on room air. OBJECTIVE: GENERAL: She is in no distress. VITAL SIGNS: Blood pressure 157/69, heart rate 75, and respiratory rate is 20. She is afebrile. LUNGS: Clear. HEART: Regular rhythm. ABDOMEN: Soft. Her bronchoscopy cytology is still pending. IMPRESSION: 1. Hemoptysis. 2. History of bronchiectasis. 3. Probable pneumonia. 4. Cultures have been reviewed. Acid-fast bacilli smears are negative. Respiratory cultures from bronchial washings are showing no new pathogens, but multiple organisms on Gram stain. We will switch her to Lety Augmentin. Hopefully, we will have cytology back by tomorrow. Job ID: [id number]
[2019-06-18] MEDS: Amoxicillin/Potassium Clav 875 MG TAB PO SCH (21:41)
[2019-06-18] MEDS: Atorvastatin Calcium 10 MG TAB PO SCH (21:41)
[2019-06-19] MEDS: hydrALAZINE 20 MG/ML VIAL SLOW IVP PRN ×3 (04:04→23:57)
[2019-06-19 05:05] LABS: #Eosinphils 0.1 thou/uL (0.0-0.7); #Lymphocytes 2.1 thou/uL (1.20-3.40); #Monocytes 0.7 thou/uL (0.11-0.59); #Neutrophils 7.3 thou/uL (1.40-6.50); %Basophils 0.4 % (0.0-1.0); %Eosinophils 0.6 % (0.0-10.0); %Lymphocytes 20.8 % (21.0-51.0); %Neutrophils 71.2 % (42.0-75.0); Hemoglobin 10.9 g/dL (12.0-16.0); Mean Corpuscular HGB CONC 32.5 g/dL (32.0-36.0); Mean Corpuscular Hemoglobin 28.7 pg (27.0-31.0); Mean Corpuscular Volume 88.3 fL (78.0-98.0); Mean Platelet Volume 8.9 fL (7.4-10.4); Platelet Count 169 thou/uL (130-400); RBC Distribution Width 12.7 % (11.5-14.5); White Blood Cell (WBC) Count 10.3 thou/uL (4.8-10.8)
[2019-06-19 05:19] LABS: Anion Gap 10 mmol/L (10-20); BUN (Urea Nitrogen) 10 mg/dL (9.8-20.1); Calc. Creatinine Clearance 53 mL/min (70-130); Calcium 8.7 mg/dL (7.8-10.44); Carbon Dioxide 23 mmol/L (23-31); Chloride 111 mmol/L (98-107); Estimated GFR-MDRD 82; Glucose 108 mg/dL (80-115); Sodium 141 mmol/L (136-145)
[2019-06-19] MEDS: Amoxicillin/Potassium Clav 875 MG TAB PO SCH ×2 (09:40→21:19)
[2019-06-19] MEDS: predniSONE 20 MG TAB PO SCH (09:40)
[2019-06-19] MEDS: Lisinopril 5 MG TAB PO SCH (09:40)
[2019-06-19] MEDS: Carvedilol 6.25 MG TAB PO SCH ×2 (09:41→21:12)
[2019-06-19] MEDS: Aspirin 81 mg Enteric Coated Tablet PO SCH (09:41)
[2019-06-19] MEDS: Clopidogrel Bisulfate 75 MG TAB PO SCH (09:41)
[2019-06-19] MEDS: Hydrocortisone Acetate 25 MG Suppository PR SCH ×2 (09:42→21:21)
[2019-06-19] MEDS: Citrucel 500 MG TAB PO SCH (10:07)
--- NOTE | 2019-06-19 12:06 | PDOC.HOSPP ---
- Subjective Subjective: Seen and examined. Breathing well on room air. Transition to oral antibiotics. All questions answered in detail. Patient is happy with plan of care. Discuss the importance of probiotic therapy with antibiotics and the possibility that she may develop loose stool. - Objective Vital Signs & Weight: Vital Signs (12 hours) Temp Pulse Resp BP BP Pulse Ox 06/19/19 11:24 98.4 F 72 20 162/71 H 100 06/19/19 09:40 97.9 F 78 18 182/77 H 99 06/19/19 04:04 64 190/92 H 06/19/19 03:42 97.5 F L 70 14 199/84 H 100 Weight Weight 115 lb 5 oz Most Recent Monitor Data Heart Rate from ECG 81 NIBP 149/61 NIBP BP-Mean 90 Respiration from ECG 18 SpO2 99 I&O: 06/18/19 06/19/19 06/20/19 06:59 06:59 06:59 Intake Total 1260 1875 Balance 1260 1875 Result Diagrams: 06/19/19 04:17 06/19/19 04:17 Radiology Reviewed by me: Yes Hospitalist ROS - Review of Systems All other systems reviewed; all pertinent +/- noted in HPI/Subj - Medication Medications: Active Medications Generic Name Dose Route Start Last Admin Trade Name Freq PRN Reason Stop Dose Admin Amoxicillin/Clavulanate Potassium 875 mg 06/18/19 21:00 06/19/19 09:40 Augmentin PO 875 mg Q12HR ARINA Administration Aspirin 81 mg 06/19/19 09:00 06/19/19 09:41 Ecotrin PO 81 mg DAILY ARINA Administration Atorvastatin Calcium 10 mg 06/16/19 21:00 06/18/19 21:41 Lipitor PO 10 mg HS ARINA Administration Carvedilol 12.5 mg 06/16/19 21:00 06/19/19 09:41 Coreg PO 12.5 mg BID ARINA Administration Clopidogrel Bisulfate 75 mg 06/19/19 09:00 06/19/19 09:41 Plavix PO 75 mg DAILY ARINA Administration Hydralazine HCl 10 mg 06/16/19 04:49 06/19/19 04:04 Apresoline SLOW IVP 10 mg Q6H PRN Administration SBP Greater Than 170 Hydrocortisone Acetate 25 mg 06/17/19 21:00 06/19/19 09:42 Anusol-Hc [place] 25 mg BID ARINA Administration Lisinopril 10 mg 06/18/19 09:00 06/19/19 09:40 Zestril PO 10 mg DAILY ARINA Administration Methylcellulose 500 mg 06/18/19 09:00 06/19/19 10:07 Citrucel PO 500 mg DAILY ARINA Administration Prednisone 40 mg 06/17/19 08:00 06/19/19 09:40 Prednisone PO 06/21/19 08:01 40 mg QAM-WM AIRNA Administration Sodium Chloride 10 ml 06/16/19 09:00 06/19/19 09:42 Flush - Normal Saline IVF 10 ml Q12HR ARINA Administration - Exam General Appearance: NAD, awake alert Eye: PERRL ENT: normocephalic atraumatic, moist mucosa Neck: supple, symmetric, no JVD, no thyromegaly, no lymphadenopathy Heart: no murmur, no gallops, no rubs Respiratory: CTAB, no wheezes, no rales, no ronchi Gastrointestinal: soft, normal bowel sounds, no guarding, no rigidity Extremities: no edema Skin: no lesions, no rashes Neurological: cranial nerve grossly intact, no weakness, no focal deficits Musculoskeletal: normal strength Psychiatric: normal affect, A&O x 3 Hosp A/P (1) Normocytic anemia Code(s): D64.9 - ANEMIA, UNSPECIFIED Status: Acute (2) Bronchiectasis Code(s): J47.9 - BRONCHIECTASIS, UNCOMPLICATED Status: Acute (3) Pneumonia Code(s): J18.9 - PNEUMONIA, UNSPECIFIED ORGANISM Status: Acute (4) CKD (chronic kidney disease) stage 2, GFR 60-89 ml/min Code(s): N18.2 - CHRONIC KIDNEY DISEASE, STAGE 2 (MILD) Status: Chronic (5) Chronic diastolic heart failure Code(s): I50.32 - CHRONIC DIASTOLIC (CONGESTIVE) HEART FAILURE Status: Chronic (6) Dyslipidemia Code(s): E78.5 - HYPERLIPIDEMIA, UNSPECIFIED Status: Chronic (7) Hypertension Code(s): I10 - ESSENTIAL (PRIMARY) HYPERTENSION Status: Chronic (8) Tobacco abuse Code(s): Z72.0 - TOBACCO USE Status: Chronic - Plan Plan: IMCU, stable for Med/ tel gastroenterology consultation, recommendations appreciated pulmonology consultation, recommendations appreciated S/p C-scope on 06/17 - see full report for details - internal and external hemorrhoids as cause of bleeding S/p Bronchoscopy on 06/17 - see full report for details patient would bronchiectasis and cavitary lesion on the right lower lobe seen on imaging Continue ABX Probiotic therapy Will need outpatient follow up with Pulmonology in the upcoming weeks blood pressure control DVT prophylaxis Restart antiplatelet therapy/ anticoagulation - not true G.I. bleeding with hemorrhoids continue other home medications as able
[2019-06-19] MEDS ORDERED: Lactinex Tablet PO SCH (12:15)
--- NOTE | 2019-06-19 13:46 | PRG ---
DATE OF SERVICE: 06/19/2019 SUBJECTIVE: Ms. Telles feels better and she wants to go home. OBJECTIVE: VITAL SIGNS: Temperature is 98.4, pulse rate 72, respirations are 20, O2 saturation 100% on room air, and blood pressure 162/71. HEENT: Unremarkable. NECK: No adenopathy or JVD. LUNGS: Clear without wheezing or rhonchi. CARDIAC: S1 and S2, regular. ABDOMEN: Soft. EXTREMITIES: No edema. LABORATORY DATA: White blood cell count 10.3, hematocrit 33.6, and platelet count 169. Sodium 141, potassium 3.0, chloride 111, CO2 of 23, BUN 10, creatinine 0.8, and glucose 103. ASSESSMENT: 1. Hemoptysis, resolved. 2. History of bronchiectasis. 3. Probable pneumonia. PLAN: This patient is ready for hospital discharge. She can go home at any time on a total of 10 days of antibiotics between hospital and home. She needs to follow with Dr. Coello as an outpatient. Hopefully, pathology results will be back by the time she follows up in the office. Job ID: [id number]
[2019-06-19 16:50] LABS: EliA RAS New Method **** NEW METHOD ****; Rheumatoid Factor IgA Antibody 4.4 IU/mL (<14 Negative); Rheumatoid Factor IgM Antibody 0.6 IU/mL (<3.5 Negative)
[2019-06-19] MEDS: Lisinopril 10 MG TAB PO SCH (21:12)
[2019-06-19] MEDS: Atorvastatin Calcium 10 MG TAB PO SCH (21:20)
[2019-06-20 04:26] VITALS: TEMP 98.3
[2019-06-20] MEDS: hydrALAZINE 20 MG/ML VIAL SLOW IVP PRN (06:34)
[2019-06-20] MEDS: Hydrocortisone Acetate 25 MG Suppository PR SCH (08:01)
[2019-06-20] MEDS: predniSONE 20 MG TAB PO SCH (08:02)
[2019-06-20] MEDS: Aspirin 81 mg Enteric Coated Tablet PO SCH (08:02)
[2019-06-20] MEDS: Lisinopril 10 MG TAB PO SCH (08:02)
[2019-06-20] MEDS: Citrucel 500 MG TAB PO SCH (08:02)
[2019-06-20] MEDS: Amoxicillin/Potassium Clav 875 MG TAB PO SCH (08:02)
[2019-06-20] MEDS: Carvedilol 6.25 MG TAB PO SCH (08:03)
[2019-06-20] MEDS: Clopidogrel Bisulfate 75 MG TAB PO SCH (08:03)
[2019-06-20 08:06] VITALS: BP 149/74
[2019-06-20] MEDS ORDERED: Amlodipine 5 MG TAB PO SCH (09:00)
[2019-06-20] MEDS ORDERED: Lactinex Tablet PO SCH (09:00)
--- NOTE | 2019-06-20 15:54 | DIS ---
DATE OF ADMISSION: 06/16/2019 DATE OF DISCHARGE: 06/20/2019 REASON FOR HOSPITALIZATION: Blood in stool and shortness of breath. SIGNIFICANT FINDINGS: The patient was found to have internal and external hemorrhoids in addition to bronchiectasis. PROCEDURES PERFORMED AND TREATMENTS RENDERED: The patient was admitted to [facility] care floor and had maximum medical therapy and was seen by Pulmonology and Gastroenterology - please see full consultation, progress notes, operative reports, and history and physical for full details. With maximum medical therapy, the patient did improve and was recommended safe for discharge by all specialists on 06/20/2019. The patient did undergo colonoscopy on 06/17/2019 - please see full operative report for details - the patient was identified to have internal and external hemorrhoids as a source of GI bleeding. The patient also underwent a bronchoscopy, which was performed on 06/17/2019, in coordination with colonoscopy - please see full operative report from bronchoscopy for details. The patient with bronchial washings, which did demonstrate Haemophilus influenzae. The patient was titrated on antibiotics appropriately by Pulmonology and recommended safe for discharge on 06/20/2019. CONDITION ON DISCHARGE: Stable. SPECIFIC INSTRUCTIONS FOR THE PATIENT/FAMILY: 1. The patient is recommended to take a full course of oral antibiotics per personnel interviewer. 2. The patient is recommended to take all other medications as directed, to be re-evaluated by primary care physician, Pulmonology, and Gastroenterology in the outpatient setting in the upcoming weeks. 3. The patient is recommended to follow up with primary care physician in the next 5 to 7 days. 4. The patient is recommended to follow up with Pulmonology in the next 2 to 3 weeks. 5. The patient is recommended to follow up with Gastroenterology in the next 3 to 4 weeks. 6. The patient is recommended to return to acute care hospital immediately if signs or symptoms return, worsen, or any other new symptoms occur. DISCHARGE MEDICATIONS: Please see full discharge medication list for details. 1. Aspirin 81 mg 1 tablet p.o. daily. 2. Plavix 75 mg 1 tablet p.o. daily. 3. Pravastatin 40 mg 1 tablet p.o. at bedtime. 4. Methylprednisolone (Medrol Dosepak). 4 mg - use as directed. 1. Amoxicillin/clavulanic acid (Augmentin) 875 mg 1 tablet p.o. b.i.d., for a full 10-day course. 2. Lisinopril 10 mg 1 tablet p.o. b.i.d. 3. Lactobacillus 1 tablet p.o. daily. 4. Hydrocortisone acetate (Anusol) hemorrhoid cream 25 mg per rectum b.i.d. 5. Cellothyl (Citrucel tablet) 500 mg 1 tablet p.o. daily. 6. Carvedilol 25 mg 1 tablet p.o. b.i.d. 7. Amlodipine 5 mg 1 tablet p.o. daily. 8. Acetaminophen 650 mg p.o. q.4 hours p.r.n. pain or fever. TIME SPENT: Greater than 39 minutes spent coordinating care and discharge process for this patient. Job ID: [id number]
[2019-06-21 10:09] LABS: A. flavus Negative (Neg:<1:1); A. fumigatus Negative (Neg:<1:1); A. niger Negative (Neg:<1:1); Blastomyces AB Negative (Neg:<1:1)
--- NOTE | 2019-06-22 05:56 | PQF ---
[employer] Lead Crystal Reports Winform ViewerMOPABLO,KIAN BRITTANY WYATT [id number] CLINICAL DOCUMENTATION CLARIFICATION FORM: POST DISCHARGE Addendum to original discharge summary date: ____ Late entry note date: __ DATE: 06/22/2019 ATTN:BRITTANY WYATT Please exercise your independent, professional judgment in responding to the clarification form. Clinical indicators are provided on the bottom of this form for your review Please check appropriate box(s): [ XX ] Pneumonia with Pulmonary Abscess [ ] Pneumonia without Pulmonary Abscess [ ] Other diagnosis [ ] Unable to determine In addition, please specify: Present on Admission (POA): [ XX ] Yes [ ] No [ ] Unable to determine For continuity of documentation, please document condition throughout progress notes and discharge summary. Thank You. CLINICAL INDICATORS - SIGNS / SYMPTOMS / LABS Pulmonary Abscess - Documented in Emergency Notes pg#9 coughing up blood last 2 days- Documented in H&P on 06/16 by Yony Mendez Pneumonia -Documented in H&P on 06/16 by Yony Mendez X ray showing RT lower lobe consolidation and area of necrosis cavitation, consistent with Pneumonia - Documented in Consult note on 06/16 by Danielle Naqvi Patient would bronchiectasis and cavitary lesion - Documented in Hospital PNs on 06/19 by Pepe Canas Probable Pneumonia - Documented in PNs on 06/18 by Linh Durbin RISK FACTORS Chronic diastolic CHF CAD HTN GI bleed and Hemoptysis TREATMENTS: Chest X ray Vancomycin 1gm IVPB - Documented in Medication Bronchoscopy BAL , Brushing , Biopsy [employer] Lead Crystal Reports Winform ViewerPulmonology consult Continue ABX (This form is maintained as a part of the permanent medical record) 2014 [employer]. All Rights Reserved [email or web address] [not provided] MTDD
[2019-06-22 09:09] LABS: Fungus Stain Final report (.)
[2019-06-23 14:09] LABS: Cytoplasmic (C-ANCA) <1:20 titer (Neg:<1:20); Myeloperoxidase AutoAbs <9.0 U/mL (0.0-9.0); Perinuclear (P-ANCA) <1:20 titer (Neg:<1:20); Proteinase-3 AutoAbs 8.3 U/mL (0.0-3.5)
--- NOTE | 2019-06-29 00:33 | PQF ---
[employer] Crystal Reports Winform ViewerMOPABLO,KIAN DOM CALDERÓN [id number] CLINICAL DOCUMENTATION CLARIFICATION FORM: POST DISCHARGE Addendum to original discharge summary date: ____ Late entry note date: __ DATE: 06/29/2019 ATTN: DOM CALDERÓN Please exercise your independent, professional judgment in responding to the clarification form. Clinical indicators are provided on the bottom of this form for your review Procedure: BRONCHOSCOPY [ X ] Right Lower Lobe Lung [ ] Right Lower Lobe Bronchus [ ] Other Body Part CLINICAL INDICATORS - SIGNS/ SYMPTOMS / LABS The Bronchoscope was advanced to the trachea - Documented in Operative report on 06/17 by DOM CALDERÓN There are multiple segment coming out from RT lower lobe- Documented in Operative report on 06/17 by DOM CALDERÓN Some old blood was in the lateral and posterior segments - Documented in Operative report on 06/17 by DOM CALDERÓN Endobronchial Biopsies were then obtained from segments - Documented in Operative report on 06/17 by DOM CALDERÓN Endobronchial Brushing were performed under fluoroscopic guidance - Documented in Operative report on 06/17 by DOM CALDERÓN RISK FACTORS Pulmonary cavity/infiltrate - Documented in Operative report on 06/17 by DOM CALDERÓN Bronchiectasis - Documented in DS on 06/20 by Pepe Canas TREATMENT Hemostasis verified and the bronchoscopy did not demonstrate a pneumothorax - Documented in Operative report on 06/17 by DOM CALDERÓN Pathology on BAL ,brushing, transbronchial biopsy (This form is maintained as a part of the permanent medical record) 2014 [employer] All Rights Reserved [email or web address] [not provided] MTDD
== END 2019-06-20 11:03 | disposition home or self-care (01) | DRG 166 ==
LOC: ERS 00:24 → IMCU/EMU 04:50 → 2NO 06-17 20:57
PROVIDERS: ADMIT Internal Medicine; ATTEND Internal Medicine
PROC: 0DJD8ZZ Inspection of Lower Intestinal Tract, Via Natural or Artificial Opening Endoscopic (ICD-10-PCS; principal; 2019-06-17)
PROC: 0B9F8ZX Drainage of Right Lower Lung Lobe, Via Natural or Artificial Opening Endoscopic, Diagnostic (ICD-10-PCS; 2019-06-17)
PROC: 0BBF8ZX Excision of Right Lower Lung Lobe, Via Natural or Artificial Opening Endoscopic, Diagnostic (ICD-10-PCS; 2019-06-17)
DX: J47.1 Bronchiectasis with (acute) exacerbation (principal); J85.1 Abscess of lung with pneumonia; I13.0 Hypertensive heart and chronic kidney disease with heart failure and stage 1 through stage 4 chronic kidney disease, or unspecified chronic kidney disease; I50.32 Chronic diastolic (congestive) heart failure; R04.2 Hemoptysis; K64.8 Other hemorrhoids; I25.10 Atherosclerotic heart disease of native coronary artery without angina pectoris; F17.200 Nicotine dependence, unspecified, uncomplicated; K64.4 Residual hemorrhoidal skin tags; N18.2 Chronic kidney disease, stage 2 (mild); E78.5 Hyperlipidemia, unspecified; Z79.82 Long term (current) use of aspirin; Z90.710 Acquired absence of both cervix and uterus; Z95.1 Presence of aortocoronary bypass graft; I25.2 Old myocardial infarction
CPT/HCPCS: 36415; 71275; 76000; 80048; 80053; 80202; 81001; 82103; 82785; 83520; 83605; 85025; 85060; 85610; 85730; 86200; 86256; 86606; 86612; 86635; 86698; 86850; 86900; 86901; 87040; 87070; 87077; 87086; 87102; 87116; 87205; 87206; 87449; 88112; 88305; 89051; 96361; 96365; 96375; C9113; J0360; J2001; J2543; J2704; J3370; J3490; J7050; J7512; Q9967

== ENCOUNTER 2021-06-05 20:27 | Emergency (ER) | payer MEDICARE ==
[2021-06-05 22:45] LABS: #Eosinphils 0.2 thou/uL (0.0-0.7); #Lymphocytes 1.7 thou/uL (1.20-3.40); #Monocytes 0.2 thou/uL (0.11-0.59); #Neutrophils 2.7 thou/uL (1.40-6.50); %Basophils 0.9 % (0.0-1.0); %Lymphocytes 34.5 % (21.0-51.0); %Neutrophils 55.7 % (42.0-75.0); Hemoglobin 15.5 g/dL (12.0-16.0); Mean Corpuscular HGB CONC 33.1 g/dL (32.0-36.0); Mean Corpuscular Hemoglobin 29.5 pg (27.0-31.0); Mean Corpuscular Volume 89.2 fL (78.0-98.0); Mean Platelet Volume 8.6 fL (7.4-10.4); Platelet Count 181 thou/uL (130-400); RBC Distribution Width 13.1 % (11.5-14.5); Red Blood Cell (RBC) Count 5.25 mill/uL (4.20-5.40); White Blood Cell (WBC) Count 4.8 thou/uL (4.8-10.8)
[2021-06-05 22:55] LABS: ALT (SGPT) 19 U/L (8-55); AST (SGOT) 19 U/L (5-34); Albumin 4.3 g/dL (3.4-4.8); Alkaline Phosphatase 160 U/L (40-110); Anion Gap 15 mmol/L (10-20); BUN (Urea Nitrogen) 12 mg/dL (9.8-20.1); Bilirubin, Total 0.2 mg/dL (0.2-1.2); Calc. Creatinine Clearance 0 mL/min (70-130); Calcium 9.8 mg/dL (7.8-10.44); Carbon Dioxide 21 mmol/L (23-31); Chloride 106 mmol/L (98-107); Globulin 3.5 g/dL (2.4-3.5); Glucose 119 mg/dL (80-115); Potassium 4.1 mmol/L (3.5-5.1); Protein, Total 7.8 g/dL (5.8-8.1); Sodium 138 mmol/L (136-145)
== END 2021-06-06 00:10 | disposition home or self-care (01) ==
LOC: ERS 20:27
DX: R04.2 Hemoptysis (principal); I10 Essential (primary) hypertension; I25.2 Old myocardial infarction; E78.5 Hyperlipidemia, unspecified; F17.210 Nicotine dependence, cigarettes, uncomplicated; Z79.82 Long term (current) use of aspirin; Z79.02 Long term (current) use of antithrombotics/antiplatelets; Z79.899 Other long term (current) drug therapy
CPT/HCPCS: 36415; 71045; 80053; 83880; 84484; 85025; 93005

== ENCOUNTER 2021-06-06 11:01 | Inpatient (IN) | payer MEDICARE ==
[2021-06-06] MEDS ORDERED: Iopamidol-370 76% 500 ML 1 ML ONE (11:33)
[2021-06-06 12:05] LABS: Actual Bicarbonate (HCO3v) 22 mEq/L (22-28); Analyzer IN Cardio ER; Base Excess -4.5 mEq/L (-2.0 to +3.0); Calcium, Ionized (venous) 1.12 mmol/L (1.16-1.32); Chloride (VBG) 103 mmol/L (98-106); Hemoglobin (Hb) 15.4 g/dL (11.7-16.1); Potassium (VBG) 4.32 mmol/L (3.70-5.30); Sodium 137.1 mmol/L (133-146); pH (venous) 7.31 (7.32-7.43)
[2021-06-06 12:08] LABS: #Eosinphils 0.2 thou/uL (0.0-0.7); #Lymphocytes 1.7 thou/uL (1.20-3.40); #Monocytes 0.3 thou/uL (0.11-0.59); %Basophils 0.4 % (0.0-1.0); %Eosinophils 2.2 % (0.0-10.0); %Lymphocytes 18.5 % (21.0-51.0); %Monocytes 3.3 % (0.0-10.0); %Neutrophils 75.6 % (42.0-75.0); Hemoglobin 14.9 g/dL (12.0-16.0); Mean Corpuscular HGB CONC 33.1 g/dL (32.0-36.0); Mean Corpuscular Hemoglobin 29.4 pg (27.0-31.0); Mean Platelet Volume 8.7 fL (7.4-10.4); Platelet Count 208 thou/uL (130-400); RBC Distribution Width 13.1 % (11.5-14.5); Red Blood Cell (RBC) Count 5.08 mill/uL (4.20-5.40); White Blood Cell (WBC) Count 9.2 thou/uL (4.8-10.8)
[2021-06-06 12:40] LABS: ALT (SGPT) 18 U/L (8-55); AST (SGOT) 16 U/L (5-34); Albumin 4.2 g/dL (3.4-4.8); Alkaline Phosphatase 156 U/L (40-110); Anion Gap 14 mmol/L (10-20); BUN (Urea Nitrogen) 13 mg/dL (9.8-20.1); Bilirubin, Total 0.5 mg/dL (0.2-1.2); CK (CPK) 92 U/L (29-168); Calc. Creatinine Clearance 0 mL/min (70-130); Calcium 9.4 mg/dL (7.8-10.44); Carbon Dioxide 23 mmol/L (23-31); Chloride 103 mmol/L (98-107); Globulin 3.3 g/dL (2.4-3.5); Glucose 143 mg/dL (80-115); Lipase 32 U/L (8-78); Magnesium 2.1 mg/dL (1.6-2.6); Potassium 4.3 mmol/L (3.5-5.1); Protein, Total 7.5 g/dL (5.8-8.1); Sodium 136 mmol/L (136-145)
[2021-06-06] MEDS ORDERED: methylPREDNISolone Sod Succ/PF 125 MG/2 ML VIAL ONE ×2 (12:55→14:18)
[2021-06-06] MEDS ORDERED: Azithromycin 500 MG VIAL ONE (14:18)
[2021-06-06] MEDS ORDERED: cefTRIAXone\\ROCEPHIN 1 GM VIAL ONE (14:18)
[2021-06-06 15:16] LABS: Lactic Acid 1.2 mmol/L (0.5-2.2)
[2021-06-06 16:52] VITALS: BMI 24.0
[2021-06-06 16:57] LABS: INR-International Normal Ratio 1.1; PTT 29.8 sec (22.9-36.1); Prothrombin Time 13.9 sec (12.0-14.7)
[2021-06-06 17:05] LABS: Alcohol Less than 10 mg/dL (Less than 10); CRP (Inflammatory) 2.86 mg/dL (= or < 0.5)
[2021-06-06] MEDS ORDERED: hydrALAZINE 20 MG/ML VIAL SLOW IVP PRN (17:18)
[2021-06-06 17:25] LABS: HIV (1/2) Antibody/Antigen Non-Reactive (NonReactive); HIV 1/2 INDEX 0.15 S/CO (<1.00)
[2021-06-06] MEDS ORDERED: FLU VACC QS2021-22(65YR UP)/PF 240 MCG/0.7 ML SYRINGE IM ONE (17:45)
[2021-06-06 18:45] LABS: Amphetamine Not Detected (NotDetected); Barbiturates Screen Not Detected (NotDetected); Benzodiazepine Screen Not Detected (NotDetected); Cocaine Metabolite Screen Not Detected (NotDetected); Methadone Not Detected (NotDetected); Methamphetamine Not Detected (NotDetected); Opiate Screen Not Detected (NotDetected); Oxycodone Screen Not Detected (NotDetected); Phencyclidine (PCP) Not Detected (NotDetected); THC/Cannabinoid Screen Not Detected (NotDetected); Tricyclic Screen Not Detected (NotDetected)
[2021-06-06] MEDS: Carvedilol 6.25 MG TAB PO SCH (20:53)
[2021-06-07 05:00] LABS: #Lymphocytes 0.9 thou/uL (1.20-3.40); #Monocytes 0.1 thou/uL (0.11-0.59); #Neutrophils 10.9 thou/uL (1.40-6.50); %Eosinophils 0.1 % (0.0-10.0); %Lymphocytes 7.3 % (21.0-51.0); %Monocytes 0.8 % (0.0-10.0); %Neutrophils 91.8 % (42.0-75.0); Hemoglobin 12.3 g/dL (12.0-16.0); Mean Corpuscular HGB CONC 33.2 g/dL (32.0-36.0); Mean Corpuscular Hemoglobin 29.4 pg (27.0-31.0); Mean Corpuscular Volume 88.6 fL (78.0-98.0); Mean Platelet Volume 8.6 fL (7.4-10.4); Platelet Count 166 thou/uL (130-400); RBC Distribution Width 12.8 % (11.5-14.5); Red Blood Cell (RBC) Count 4.17 mill/uL (4.20-5.40); White Blood Cell (WBC) Count 11.9 thou/uL (4.8-10.8)
[2021-06-07 08:52] VITALS: BP 168/82; TEMP 98.1
[2021-06-07] MEDS ORDERED: Losartan 25 MG TAB PO SCH (09:00)
[2021-06-07] MEDS ORDERED: Enoxaparin Sodium 40 MG/0.4 ML SYRINGE SC SCH (09:00)
[2021-06-07] MEDS ORDERED: Clopidogrel Bisulfate 75 MG TAB PO SCH (09:00)
[2021-06-07] MEDS: Carvedilol 6.25 MG TAB PO SCH (09:15)
[2021-06-07 11:09] LABS: SARS-CoV-2 PCR by NAA Not Detected (NotDetected)
== END 2021-06-07 11:08 | disposition home or self-care (01) | DRG 204 ==
LOC: ERS 11:01 → 2NO 14:14
PROVIDERS: ADMIT Student in an Organized Health Care Education/Training Program; ATTEND Student in an Organized Health Care Education/Training Program
DX: R04.2 Hemoptysis (principal); R65.10 Systemic inflammatory response syndrome (SIRS) of non-infectious origin without acute organ dysfunction; Z20.822 Contact with and (suspected) exposure to COVID-19; I25.10 Atherosclerotic heart disease of native coronary artery without angina pectoris; F17.210 Nicotine dependence, cigarettes, uncomplicated; I12.9 Hypertensive chronic kidney disease with stage 1 through stage 4 chronic kidney disease, or unspecified chronic kidney disease; E78.5 Hyperlipidemia, unspecified; N18.30 Chronic kidney disease, stage 3 unspecified; J45.909 Unspecified asthma, uncomplicated; I25.2 Old myocardial infarction; Z79.01 Long term (current) use of anticoagulants; Z79.899 Other long term (current) drug therapy; Z95.1 Presence of aortocoronary bypass graft; Z90.710 Acquired absence of both cervix and uterus; Z71.6 Tobacco abuse counseling
CPT/HCPCS: 36415; 71045; 71275; 80053; 80306; 80307; 82550; 82805; 83605; 83690; 83735; 83880; 84484; 85025; 85610; 85652; 85730; 86140; 87040; 87389; 93005; J0360; J0456; J0696; J2930; J7620; Q9967; U0003; U0005

== ENCOUNTER 2021-06-07 15:53 | Inpatient (IN) | payer MEDICARE ==
[~2021-06-07 15:53] MED LIST: Iopamidol-370 76% 500 ML 1 ML ONE
[2021-06-07 17:13] LABS: #Basophils 0.1 thou/uL (0.0-0.2); #Lymphocytes 1.1 thou/uL (1.20-3.40); #Monocytes 0.7 thou/uL (0.11-0.59); #Neutrophils 14.8 thou/uL (1.40-6.50); %Basophils 0.3 % (0.0-1.0); %Lymphocytes 6.8 % (21.0-51.0); %Monocytes 3.9 % (0.0-10.0); %Neutrophils 88.9 % (42.0-75.0); Hemoglobin 11.9 g/dL (12.0-16.0); Mean Corpuscular HGB CONC 33.9 g/dL (32.0-36.0); Mean Corpuscular Hemoglobin 30.1 pg (27.0-31.0); Mean Corpuscular Volume 88.6 fL (78.0-98.0); Mean Platelet Volume 8.2 fL (7.4-10.4); Platelet Count 179 thou/uL (130-400); RBC Distribution Width 12.9 % (11.5-14.5); Red Blood Cell (RBC) Count 3.95 mill/uL (4.20-5.40); White Blood Cell (WBC) Count 16.7 thou/uL (4.8-10.8)
[2021-06-07 17:34] LABS: ALT (SGPT) 15 U/L (8-55); AST (SGOT) 14 U/L (5-34); Alkaline Phosphatase 124 U/L (40-110); Anion Gap 11 mmol/L (10-20); BUN (Urea Nitrogen) 23 mg/dL (9.8-20.1); Bilirubin, Total 0.3 mg/dL (0.2-1.2); Calc. Creatinine Clearance 0 mL/min (70-130); Calcium 9.4 mg/dL (7.8-10.44); Carbon Dioxide 24 mmol/L (23-31); Chloride 108 mmol/L (98-107); Globulin 2.6 g/dL (2.4-3.5); Glucose 163 mg/dL (80-115); Potassium 4.1 mmol/L (3.5-5.1); Protein, Total 6.6 g/dL (5.8-8.1); Sodium 139 mmol/L (136-145)
[2021-06-07 17:43] LABS: PTT 26.8 sec (22.9-36.1); Prothrombin Time 13.7 sec (12.0-14.7)
[2021-06-07] MEDS ORDERED: cefTRIAXone\\ROCEPHIN 1 GM VIAL ONE (18:28)
[2021-06-07] MEDS ORDERED: Albuterol 200 PUFF (6.7GM INHALER) ONE (18:38)
[2021-06-07] MEDS ORDERED: Azithromycin 500 MG VIAL ONE (19:07)
[2021-06-07] MEDS ORDERED: Ondansetron ODT 4 MG TAB PO PRN (19:47)
[2021-06-07 21:30] VITALS: BMI 23.3
[2021-06-08] MEDS: Ondansetron PF 4 MG/2 ML Vial IVP PRN ×2 (05:50→20:23)
[2021-06-08 06:30] LABS: #Basophils 0.1 thou/uL (0.0-0.2); #Eosinphils 0.1 thou/uL (0.0-0.7); #Lymphocytes 3.3 thou/uL (1.20-3.40); #Monocytes 0.5 thou/uL (0.11-0.59); #Neutrophils 9.9 thou/uL (1.40-6.50); %Basophils 0.4 % (0.0-1.0); %Eosinophils 0.5 % (0.0-10.0); %Lymphocytes 23.9 % (21.0-51.0); %Monocytes 3.5 % (0.0-10.0); %Neutrophils 71.7 % (42.0-75.0); Hemoglobin 11.4 g/dL (12.0-16.0); Mean Corpuscular HGB CONC 32.6 g/dL (32.0-36.0); Mean Corpuscular Hemoglobin 29.2 pg (27.0-31.0); Mean Corpuscular Volume 89.6 fL (78.0-98.0); Mean Platelet Volume 8.4 fL (7.4-10.4); Platelet Count 191 thou/uL (130-400); Red Blood Cell (RBC) Count 3.89 mill/uL (4.20-5.40); White Blood Cell (WBC) Count 13.8 thou/uL (4.8-10.8)
[2021-06-08 06:46] LABS: Anion Gap 11 mmol/L (10-20); BUN (Urea Nitrogen) 18 mg/dL (9.8-20.1); Calc. Creatinine Clearance 43 mL/min (70-130); Calcium 9.3 mg/dL (7.8-10.44); Carbon Dioxide 24 mmol/L (23-31); Chloride 110 mmol/L (98-107); Glucose 102 mg/dL (80-115); Potassium 3.7 mmol/L (3.5-5.1); Sodium 141 mmol/L (136-145)
[2021-06-08] MEDS: Carvedilol 6.25 MG TAB PO SCH ×2 (08:22→20:24)
[2021-06-08] MEDS: Losartan 25 MG TAB PO SCH (08:22)
[2021-06-08] MEDS ORDERED: FLU VACC QS2021-22(65YR UP)/PF 240 MCG/0.7 ML SYRINGE IM ONE (09:00)
[2021-06-08] MEDS: Nicotine 14 MG PATCH TD SCH (09:14)
[2021-06-08] MEDS ORDERED: cefTRIAXone\\ROCEPHIN 1 GM in Sodium Chloride 0.9% 100 ML IVPB SCH (18:00)
[2021-06-08] MEDS ORDERED: Azithromycin 500 MG in Sodium Chloride 0.9% 250 ML 250 ML IVPB SCH (20:00)
[2021-06-09 05:40] LABS: #Eosinphils 0.2 thou/uL (0.0-0.7); #Lymphocytes 2.1 thou/uL (1.20-3.40); #Monocytes 0.5 thou/uL (0.11-0.59); #Neutrophils 3.8 thou/uL (1.40-6.50); %Basophils 0.6 % (0.0-1.0); %Lymphocytes 32.1 % (21.0-51.0); %Neutrophils 57.3 % (42.0-75.0); Hemoglobin 9.7 g/dL (12.0-16.0); Mean Corpuscular HGB CONC 33.7 g/dL (32.0-36.0); Mean Corpuscular Hemoglobin 29.9 pg (27.0-31.0); Mean Corpuscular Volume 88.7 fL (78.0-98.0); Mean Platelet Volume 7.8 fL (7.4-10.4); Platelet Count 152 thou/uL (130-400); RBC Distribution Width 12.8 % (11.5-14.5); Red Blood Cell (RBC) Count 3.23 mill/uL (4.20-5.40); White Blood Cell (WBC) Count 6.6 thou/uL (4.8-10.8)
[2021-06-09 05:55] LABS: Anion Gap 7 mmol/L (10-20); BUN (Urea Nitrogen) 17 mg/dL (9.8-20.1); Calc. Creatinine Clearance 50 mL/min (70-130); Calcium 8.9 mg/dL (7.8-10.44); Carbon Dioxide 28 mmol/L (23-31); Chloride 109 mmol/L (98-107); Glucose 99 mg/dL (80-115); Sodium 140 mmol/L (136-145)
[2021-06-09] MEDS: Ondansetron PF 4 MG/2 ML Vial IVP PRN (06:19)
[2021-06-09] MEDS: Nicotine 14 MG PATCH TD SCH (09:20)
[2021-06-09] MEDS: Carvedilol 6.25 MG TAB PO SCH (09:21)
[2021-06-09] MEDS: Losartan 25 MG TAB PO SCH (09:21)
[2021-06-09] MEDS ORDERED: Azithromycin 250 MG TAB PO SCH (10:15)
[2021-06-09 12:04] VITALS: BP 156/73; TEMP 98.1
[2021-06-10] MEDS ORDERED: Azithromycin 250 MG TAB PO SCH (09:00)
[2021-06-10 12:05] LABS: EliA Vaculitis New Method **** NEW METHOD ****; Proteinase 3 (PR3) Ab Less than 0.7 U/mL (<7 Negative)
== END 2021-06-09 13:24 | disposition home or self-care (01) | DRG 868 ==
LOC: ERS 15:53 → T4-A 18:37
PROVIDERS: ADMIT Student in an Organized Health Care Education/Training Program; ATTEND Student in an Organized Health Care Education/Training Program
DX: B44.1 Other pulmonary aspergillosis (principal); N17.9 Acute kidney failure, unspecified; J45.909 Unspecified asthma, uncomplicated; J47.9 Bronchiectasis, uncomplicated; N18.30 Chronic kidney disease, stage 3 unspecified; E78.5 Hyperlipidemia, unspecified; I51.7 Cardiomegaly; I25.10 Atherosclerotic heart disease of native coronary artery without angina pectoris; I12.9 Hypertensive chronic kidney disease with stage 1 through stage 4 chronic kidney disease, or unspecified chronic kidney disease; F17.210 Nicotine dependence, cigarettes, uncomplicated; I25.2 Old myocardial infarction; Z28.21 Immunization not carried out because of patient refusal; Z95.1 Presence of aortocoronary bypass graft; Z79.899 Other long term (current) drug therapy; Z79.02 Long term (current) use of antithrombotics/antiplatelets; Z90.710 Acquired absence of both cervix and uterus
CPT/HCPCS: 36415; 71045; 71275; 80048; 80053; 82785; 83516; 83520; 83605; 84145; 85025; 85610; 85652; 85730; 86256; 87040; 93306; 94640; 96365; 96368; J0456; J0696; J2405; J7620; Q9967

== ENCOUNTER 2021-06-19 09:00 | Inpatient (IN) | payer MEDICARE ==
[2021-06-19] MEDS ORDERED: Iopamidol-370 76% 500 ML 1 ML ONE (09:54)
[2021-06-19 11:14] LABS: #Eosinphils 0.5 thou/uL (0.0-0.7); #Lymphocytes 1.4 thou/uL (1.20-3.40); #Monocytes 0.4 thou/uL (0.11-0.59); %Basophils 0.3 % (0.0-1.0); %Eosinophils 6.1 % (0.0-10.0); %Lymphocytes 16.5 % (21.0-51.0); %Monocytes 4.8 % (0.0-10.0); %Neutrophils 72.3 % (42.0-75.0); Mean Corpuscular Hemoglobin 28.8 pg (27.0-31.0); Mean Corpuscular Volume 89.8 fL (78.0-98.0); Mean Platelet Volume 6.7 fL (7.4-10.4); Platelet Count 422 thou/uL (130-400); RBC Distribution Width 13.5 % (11.5-14.5); Red Blood Cell (RBC) Count 3.11 mill/uL (4.20-5.40); White Blood Cell (WBC) Count 8.3 thou/uL (4.8-10.8)
[2021-06-19 11:40] LABS: ALT (SGPT) 15 U/L (8-55); AST (SGOT) 12 U/L (5-34); Albumin 3.9 g/dL (3.4-4.8); Alkaline Phosphatase 147 U/L (40-110); Anion Gap 13 mmol/L (10-20); BUN (Urea Nitrogen) 6 mg/dL (9.8-20.1); Bilirubin, Total 0.3 mg/dL (0.2-1.2); Calc. Creatinine Clearance 0 mL/min (70-130); Calcium 9.4 mg/dL (7.8-10.44); Carbon Dioxide 24 mmol/L (23-31); Chloride 106 mmol/L (98-107); Globulin 2.9 g/dL (2.4-3.5); Glucose 108 mg/dL (80-115); Potassium 4.1 mmol/L (3.5-5.1); Protein, Total 6.8 g/dL (5.8-8.1); Sodium 139 mmol/L (136-145)
[2021-06-19 12:01] LABS: CKMB 0.6 ng/mL (0-6.6)
[2021-06-19] MEDS ORDERED: Ondansetron ODT 4 MG TAB PO PRN (13:31)
[2021-06-19] MEDS ORDERED: Acetaminophen 325 MG TAB PO PRN (13:31)
[2021-06-19] MEDS ORDERED: hydrALAZINE 20 MG/ML VIAL SLOW IVP PRN (13:37)
[2021-06-19] MEDS ORDERED: Azithromycin 250 MG TAB PO SCH (14:00)
[2021-06-19 14:04] LABS: SARS-CoV-2 NAA Rapid Test Not Detected (NotDetected)
[2021-06-19] MEDS ORDERED: Azithromycin 250 MG TAB ONE (14:26)
[2021-06-19 17:54] VITALS: BMI 22.7
[2021-06-19 18:12] LABS: Troponin I 0.044 ng/mL (< 0.028)
[2021-06-19] MEDS ORDERED: FLU VACC QS2021-22(65YR UP)/PF 240 MCG/0.7 ML SYRINGE IM ONE (18:15)
[2021-06-19 20:52] LABS: Troponin I 0.046 ng/mL (< 0.028)
[2021-06-19] MEDS ORDERED: Atorvastatin Calcium 10 MG TAB PO SCH (21:00)
[2021-06-19] MEDS: Atorvastatin Calcium 40 MG TAB PO SCH (21:06)
[2021-06-20 06:10] LABS: #Eosinphils 0.4 thou/uL (0.0-0.7); #Lymphocytes 1.3 thou/uL (1.20-3.40); #Monocytes 0.4 thou/uL (0.11-0.59); #Neutrophils 6.2 thou/uL (1.40-6.50); %Basophils 0.3 % (0.0-1.0); %Eosinophils 4.5 % (0.0-10.0); %Lymphocytes 15.3 % (21.0-51.0); %Monocytes 5.2 % (0.0-10.0); %Neutrophils 74.8 % (42.0-75.0); Mean Corpuscular HGB CONC 32.6 g/dL (32.0-36.0); Mean Corpuscular Hemoglobin 29.3 pg (27.0-31.0); Mean Platelet Volume 6.9 fL (7.4-10.4); Platelet Count 400 thou/uL (130-400); RBC Distribution Width 13.7 % (11.5-14.5); Red Blood Cell (RBC) Count 3.05 mill/uL (4.20-5.40); White Blood Cell (WBC) Count 8.3 thou/uL (4.8-10.8)
[2021-06-20 06:22] LABS: Hemoglobin A1c 5.9 % (4.0-6.0)
[2021-06-20 06:32] LABS: ALT (SGPT) 11 U/L (8-55); AST (SGOT) 10 U/L (5-34); Albumin 3.6 g/dL (3.4-4.8); Alkaline Phosphatase 127 U/L (40-110); Anion Gap 9 mmol/L (10-20); BUN (Urea Nitrogen) 7 mg/dL (9.8-20.1); Bilirubin, Total 0.4 mg/dL (0.2-1.2); Calc. Creatinine Clearance 34 mL/min (70-130); Calcium 9.5 mg/dL (7.8-10.44); Carbon Dioxide 27 mmol/L (23-31); Cardiac Risk 6.2 (Less than 4.5); Chloride 103 mmol/L (98-107); Cholesterol 203 mg/dl (< 200 Desired); Globulin 3.6 g/dL (2.4-3.5); Glucose 113 mg/dL (80-115); HDL Cholesterol 33 mg/dL (>60 Neg Risk); LDL Cholesterol, Calculated 150 mg/dL; Protein, Total 7.2 g/dL (5.8-8.1); Sodium 135 mmol/L (136-145); Triglycerides 99 mg/dL (Less than 150)
[2021-06-20] MEDS: Clopidogrel Bisulfate 75 MG TAB PO SCH (08:00)
[2021-06-20] MEDS: Azithromycin 250 MG TAB PO SCH (08:00)
[2021-06-20] MEDS: Aspirin 81 mg Enteric Coated Tablet PO SCH (08:00)
[2021-06-20] MEDS ORDERED: Aspirin 81 mg Enteric Coated Tablet PO SCH (09:00)
[2021-06-20 10:14] LABS: Iron Binding Capacity, Total 283 mcg/dL (265-497)
[2021-06-20 10:15] LABS: Iron 22 ug/dL (50-170)
[2021-06-20 10:23] LABS: Ferritin 63.18 ng/mL (10-291)
[2021-06-20] MEDS ORDERED: Lactated Ringer's 1,000 ML IV SCH (10:30)
[2021-06-20 17:25] LABS: Bilirubin Negative (Negative); Blood, Urine 1+ (Negative); Clarity Turbid (Clear); Glucose, Urine (Dipstick) Normal (Negative); Ketone, Urine Negative (Negative); Leukocyte 500 Leu/uL (Negative); Nitrite Negative (Negative); Protein, Urine (Dipstick) Negative (Neg-Trace); Squamous Epithelial 0-3 HPF (0-3); Urobilinogen Normal mg/dL (Less than 2)
[2021-06-20 17:27] LABS: Bacteria/HPF 1+ HPF (None Seen); WBC/HPF 21-50 HPF (0-3)
[2021-06-20] MEDS: Carvedilol 6.25 MG TAB PO SCH (20:32)
[2021-06-20] MEDS: Atorvastatin Calcium 40 MG TAB PO SCH (20:32)
[2021-06-21] MEDS: Aspirin 81 mg Enteric Coated Tablet PO SCH (09:34)
[2021-06-21] MEDS: Losartan 25 MG TAB PO SCH (09:34)
[2021-06-21] MEDS: Carvedilol 6.25 MG TAB PO SCH ×2 (09:34→20:53)
[2021-06-21] MEDS: Azithromycin 250 MG TAB PO SCH (09:35)
[2021-06-21] MEDS: Clopidogrel Bisulfate 75 MG TAB PO SCH (09:35)
[2021-06-21] MEDS ORDERED: Ferrous Sulfate 325 MG TAB PO SCH (10:00)
[2021-06-21] MEDS: cefTRIAXone\\ROCEPHIN 1 GM in Sodium Chloride 0.9% 100 ML IVPB SCH (10:11)
[2021-06-21] MEDS ORDERED: Enoxaparin Sodium 40 MG/0.4 ML SYRINGE SC SCH (12:15)
[2021-06-21 13:48] LABS: #Eosinphils 0.4 thou/uL (0.0-0.7); #Lymphocytes 1.7 thou/uL (1.20-3.40); #Monocytes 0.4 thou/uL (0.11-0.59); #Neutrophils 4.5 thou/uL (1.40-6.50); %Basophils 0.4 % (0.0-1.0); %Eosinophils 5.7 % (0.0-10.0); %Lymphocytes 23.5 % (21.0-51.0); %Neutrophils 64.4 % (42.0-75.0); Hemoglobin 8.5 g/dL (12.0-16.0); Mean Corpuscular HGB CONC 32.1 g/dL (32.0-36.0); Mean Corpuscular Hemoglobin 28.9 pg (27.0-31.0); Mean Corpuscular Volume 90.1 fL (78.0-98.0); Mean Platelet Volume 6.5 fL (7.4-10.4); Platelet Count 349 thou/uL (130-400); RBC Distribution Width 13.4 % (11.5-14.5); Red Blood Cell (RBC) Count 2.95 mill/uL (4.20-5.40); White Blood Cell (WBC) Count 7.1 thou/uL (4.8-10.8)
[2021-06-21 14:09] LABS: Anion Gap 12 mmol/L (10-20); BUN (Urea Nitrogen) 8 mg/dL (9.8-20.1); Calc. Creatinine Clearance 39 mL/min (70-130); Calcium 9.5 mg/dL (7.8-10.44); Carbon Dioxide 25 mmol/L (23-31); Chloride 103 mmol/L (98-107); Glucose 100 mg/dL (80-115); Potassium 3.9 mmol/L (3.5-5.1); Sodium 136 mmol/L (136-145)
[2021-06-21 19:18] LABS: Hemoglobin 8.4 g/dL (12.0-16.0)
[2021-06-21 19:30] LABS: INR-International Normal Ratio 1.2; Prothrombin Time 15.6 sec (12.0-14.7)
[2021-06-21 19:31] LABS: PTT 37.3 sec (22.9-36.1)
[2021-06-21] MEDS: Atorvastatin Calcium 40 MG TAB PO SCH (20:53)
[2021-06-22 06:17] LABS: Anion Gap 16 mmol/L (10-20); BUN (Urea Nitrogen) 12 mg/dL (9.8-20.1); Calc. Creatinine Clearance 44 mL/min (70-130); Calcium 9.3 mg/dL (7.8-10.44); Carbon Dioxide 21 mmol/L (23-31); Chloride 104 mmol/L (98-107); Glucose 94 mg/dL (80-115); Potassium 3.9 mmol/L (3.5-5.1); Sodium 137 mmol/L (136-145)
[2021-06-22] MEDS ORDERED: Ferrous Sulfate 325 MG TAB PO SCH (08:00)
[2021-06-22] MEDS ORDERED: Enoxaparin Sodium 40 MG/0.4 ML SYRINGE SC SCH (09:00)
[2021-06-22] MEDS: Carvedilol 6.25 MG TAB PO SCH ×2 (09:09→20:46)
[2021-06-22] MEDS: Azithromycin 250 MG TAB PO SCH (09:10)
[2021-06-22] MEDS: Losartan 25 MG TAB PO SCH (09:10)
[2021-06-22] MEDS: cefTRIAXone\\ROCEPHIN 1 GM in Sodium Chloride 0.9% 100 ML IVPB SCH (09:10)
[2021-06-22 09:30] LABS: #Basophils 0.1 thou/uL (0.0-0.2); #Eosinphils 0.2 thou/uL (0.0-0.7); #Lymphocytes 1.6 thou/uL (1.20-3.40); #Monocytes 0.6 thou/uL (0.11-0.59); #Neutrophils 6.6 thou/uL (1.40-6.50); %Basophils 0.6 % (0.0-1.0); %Eosinophils 2.4 % (0.0-10.0); %Lymphocytes 17.5 % (21.0-51.0); %Monocytes 6.1 % (0.0-10.0); %Neutrophils 73.4 % (42.0-75.0); Hemoglobin 7.9 g/dL (12.0-16.0); Mean Corpuscular HGB CONC 31.5 g/dL (32.0-36.0); Mean Corpuscular Hemoglobin 28.1 pg (27.0-31.0); Mean Corpuscular Volume 89.4 fL (78.0-98.0); Mean Platelet Volume 7.1 fL (7.4-10.4); Platelet Count 377 thou/uL (130-400); RBC Distribution Width 13.4 % (11.5-14.5); Red Blood Cell (RBC) Count 2.79 mill/uL (4.20-5.40)
[2021-06-22] MEDS: Nitrofurantoin Monohyd/M-Cryst 100 MG CAP PO SCH ×2 (12:06→20:46)
[2021-06-22] MEDS: Atorvastatin Calcium 40 MG TAB PO SCH (20:46)
[2021-06-23] MEDS ORDERED: PROPOFOL 200 MG/20 ML VIAL ONE (09:33)
[2021-06-23] MEDS ORDERED: Lidocaine 1% PF 5 ML VIAL ONE (09:33)
[2021-06-23 11:22] LABS: #Eosinphils 0.5 thou/uL (0.0-0.7); #Lymphocytes 1.7 thou/uL (1.20-3.40); #Monocytes 0.5 thou/uL (0.11-0.59); #Neutrophils 3.9 thou/uL (1.40-6.50); %Basophils 0.4 % (0.0-1.0); %Eosinophils 7.4 % (0.0-10.0); %Lymphocytes 25.4 % (21.0-51.0); %Monocytes 6.9 % (0.0-10.0); %Neutrophils 59.9 % (42.0-75.0); Hemoglobin 7.4 g/dL (12.0-16.0); Mean Corpuscular HGB CONC 32.2 g/dL (32.0-36.0); Mean Corpuscular Hemoglobin 28.4 pg (27.0-31.0); Mean Platelet Volume 6.6 fL (7.4-10.4); Platelet Count 330 thou/uL (130-400); RBC Distribution Width 13.4 % (11.5-14.5); Red Blood Cell (RBC) Count 2.62 mill/uL (4.20-5.40); White Blood Cell (WBC) Count 6.5 thou/uL (4.8-10.8)
[2021-06-23] MEDS: Losartan 25 MG TAB PO SCH (13:17)
[2021-06-23] MEDS: Carvedilol 6.25 MG TAB PO SCH ×2 (13:17→21:26)
[2021-06-23] MEDS: Nitrofurantoin Monohyd/M-Cryst 100 MG CAP PO SCH (13:18)
[2021-06-23] MEDS: Atorvastatin Calcium 40 MG TAB PO SCH (21:26)
[2021-06-24 01:57] LABS: Hemoglobin 9.3 g/dL (12.0-16.0)
[2021-06-24] MEDS ORDERED: Aspirin 81 mg Enteric Coated Tablet PO SCH (09:00)
[2021-06-24] MEDS ORDERED: Clopidogrel Bisulfate 75 MG TAB PO SCH (09:00)
[2021-06-24] MEDS: Losartan 25 MG TAB PO SCH (10:00)
[2021-06-24] MEDS: Carvedilol 6.25 MG TAB PO SCH (10:01)
[2021-06-24 11:50] VITALS: BP 131/67; TEMP 98.7
== END 2021-06-24 16:00 | DRG 65 ==
LOC: ERS 09:00 → ERHOLD 11:00 → NEURO 17:16
PROVIDERS: ADMIT Family Medicine; ATTEND Family Medicine
PROC: 30233N1 Transfusion of Nonautologous Red Blood Cells into Peripheral Vein, Percutaneous Approach (ICD-10-PCS; principal; 2021-06-23)
PROC: 0DB78ZX Excision of Stomach, Pylorus, Via Natural or Artificial Opening Endoscopic, Diagnostic (ICD-10-PCS; 2021-06-23)
DX: I63.531 Cerebral infarction due to unspecified occlusion or stenosis of right posterior cerebral artery (principal); N17.9 Acute kidney failure, unspecified; N39.0 Urinary tract infection, site not specified; R04.2 Hemoptysis; B44.9 Aspergillosis, unspecified; Z20.822 Contact with and (suspected) exposure to COVID-19; I10 Essential (primary) hypertension; E78.5 Hyperlipidemia, unspecified; J45.909 Unspecified asthma, uncomplicated; R29.701 NIHSS score 1; I25.10 Atherosclerotic heart disease of native coronary artery without angina pectoris; F17.210 Nicotine dependence, cigarettes, uncomplicated; D63.8 Anemia in other chronic diseases classified elsewhere; D50.9 Iron deficiency anemia, unspecified; K25.9 Gastric ulcer, unspecified as acute or chronic, without hemorrhage or perforation; K31.819 Angiodysplasia of stomach and duodenum without bleeding; I25.2 Old myocardial infarction; Z95.1 Presence of aortocoronary bypass graft; Z90.710 Acquired absence of both cervix and uterus; Z79.82 Long term (current) use of aspirin; Z79.899 Other long term (current) drug therapy; Z87.01 Personal history of pneumonia (recurrent); J43.9 Emphysema, unspecified
CPT/HCPCS: 36415; 36430; 70450; 70496; 70498; 70551; 71045; 80048; 80053; 80061; 81001; 82274; 82553; 82607; 82728; 82746; 83036; 83540; 83550; 84443; 84484; 85014; 85018; 85025; 85610; 85730; 86850; 86900; 86901; 87040; 87086; 88305; 93005; 93010; J0696; J1650; J1956; J2704; J3490; P9016; Q9967; U0002

== ENCOUNTER 2021-12-05 09:01 | Inpatient (IN) | payer MEDICARE ==
[2021-12-05 09:47] LABS: ALT (SGPT) 15 U/L (8-55); AST (SGOT) 20 U/L (5-34); Alkaline Phosphatase 172 U/L (40-110); Anion Gap 16 mmol/L (10-20); BUN (Urea Nitrogen) 7 mg/dL (9.8-20.1); Bilirubin, Total 0.5 mg/dL (0.2-1.2); Calc. Creatinine Clearance 0 mL/min (70-130); Calcium 9.5 mg/dL (7.8-10.44); Carbon Dioxide 22 mmol/L (23-31); Chloride 106 mmol/L (98-107); Globulin 3.4 g/dL (2.4-3.5); Glucose 117 mg/dL (80-115); Lipase 23 U/L (8-78); Potassium 5.2 mmol/L (3.5-5.1); Protein, Total 7.4 g/dL (5.8-8.1); Sodium 139 mmol/L (136-145)
[2021-12-05 10:12] LABS: #Eosinphils 0.1 thou/uL (0.0-0.7); #Lymphocytes 0.9 thou/uL (1.20-3.40); #Monocytes 0.2 thou/uL (0.11-0.59); %Basophils 0.7 % (0.0-1.0); %Eosinophils 1.8 % (0.0-10.0); %Lymphocytes 21.6 % (21.0-51.0); %Monocytes 4.8 % (0.0-10.0); %Neutrophils 71.1 % (42.0-75.0); Mean Corpuscular HGB CONC 31.1 g/dL (32.0-36.0); Mean Corpuscular Hemoglobin 28.3 pg (27.0-31.0); Platelet Count 118 thou/uL (130-400); Platelet Morphology Comment Appears Decreased; RBC Distribution Width 20.4 % (11.5-14.5); RBC Morphology Normal; Red Blood Cell (RBC) Count 6.01 mill/uL (4.20-5.40); White Blood Cell (WBC) Count 4.3 thou/uL (4.8-10.8)
[2021-12-05] MEDS ORDERED: Aspirin Chewable 81 MG TAB ONE (12:00)
[2021-12-05] MEDS ORDERED: hydrALAZINE 20 MG/ML VIAL ONE (12:36)
[2021-12-05] MEDS ORDERED: hydrALAZINE 20 MG/ML VIAL SLOW IVP PRN (14:21)
[2021-12-05] MEDS ORDERED: Acetaminophen 325 MG TAB PO PRN (14:23)
[2021-12-05] MEDS ORDERED: Senokot S 8.6-50 MG TAB PO PRN (14:23)
[2021-12-05] MEDS ORDERED: Ondansetron ODT 4 MG TAB PO PRN (14:23)
[2021-12-05] MEDS ORDERED: Ondansetron PF 4 MG/2 ML Vial IVP PRN (14:23)
[2021-12-05 15:16] LABS: Magnesium 2.2 mg/dL (1.6-2.6)
[2021-12-05 15:21] LABS: Troponin I 0.057 ng/mL (< 0.028)
[2021-12-05 15:41] VITALS: BMI 17.3
[2021-12-05] MEDS: Nicotine 14 MG PATCH TD SCH (18:18)
[2021-12-05 18:40] LABS: Troponin I 0.069 ng/mL (< 0.028)
[2021-12-05] MEDS ORDERED: Carvedilol 6.25 MG TAB PO SCH (21:00)
[2021-12-05 21:47] LABS: SARS-CoV-2 PCR by NAA Not Detected (NotDetected)
[2021-12-06 04:54] LABS: #Eosinphils 0.1 thou/uL (0.0-0.7); #Lymphocytes 1.5 thou/uL (1.20-3.40); #Monocytes 0.2 thou/uL (0.11-0.59); #Neutrophils 2.9 thou/uL (1.40-6.50); %Basophils 0.5 % (0.0-1.0); %Eosinophils 2.8 % (0.0-10.0); %Lymphocytes 31.3 % (21.0-51.0); %Monocytes 4.6 % (0.0-10.0); %Neutrophils 60.8 % (42.0-75.0); Hemoglobin 17.1 g/dL (12.0-16.0); Mean Corpuscular HGB CONC 30.4 g/dL (32.0-36.0); Mean Corpuscular Volume 95.3 fL (78.0-98.0); Mean Platelet Volume 11.2 fL (7.4-10.4); Platelet Count 103 thou/uL (130-400); RBC Distribution Width 20.1 % (11.5-14.5); Red Blood Cell (RBC) Count 5.91 mill/uL (4.20-5.40); White Blood Cell (WBC) Count 4.7 thou/uL (4.8-10.8)
[2021-12-06 05:33] LABS: Anion Gap 18 mmol/L (10-20); BUN (Urea Nitrogen) 11 mg/dL (9.8-20.1); Calc. Creatinine Clearance 32 mL/min (70-130); Carbon Dioxide 11 mmol/L (23-31); Cardiac Risk 2.7 (Less than 4.5); Chloride 110 mmol/L (98-107); Cholesterol 141 mg/dl (< 200 Desired); Glucose 100 mg/dL (80-115); HDL Cholesterol 52 mg/dL (>60 Neg Risk); LDL Cholesterol, Calculated 74 mg/dL; Potassium 4.7 mmol/L (3.5-5.1); Sodium 134 mmol/L (136-145); Triglycerides 76 mg/dL (Less than 150)
[2021-12-06] MEDS: Clopidogrel Bisulfate 75 MG TAB PO SCH (08:40)
[2021-12-06] MEDS: Ferrous Sulfate 325 MG TAB PO SCH (08:40)
[2021-12-06] MEDS: Aspirin 81 mg Enteric Coated Tablet PO SCH (08:40)
[2021-12-06 08:51] LABS: Lactic Acid 0.8 mmol/L (0.5-2.2)
[2021-12-06] MEDS ORDERED: Losartan 25 MG TAB PO SCH (09:00)
[2021-12-06] MEDS ORDERED: Sodium Chloride 0.9% 1,000 ML IV SCH (11:00)
[2021-12-06] MEDS: Nicotine 14 MG PATCH TD SCH (15:54)
[2021-12-06 16:06] LABS: Bilirubin Negative (Negative); Blood, Urine 1+ (Negative); Clarity Turbid (Clear); Glucose, Urine (Dipstick) Normal (Negative); Ketone, Urine Negative (Negative); Leukocyte 500 Leu/uL (Negative); Nitrite Negative (Negative); Protein, Urine (Dipstick) 20 mg/dL (Neg-Trace); Specific Gravity, Urine 1.039 (1.002-1.036); Squamous Epithelial 0-3 HPF (0-3); Urobilinogen Normal mg/dL (Less than 2); pH, Urine 5.5 (5.0-9.0)
[2021-12-06 16:27] LABS: Bacteria/HPF 2+ HPF (None Seen); WBC/HPF 21-50 HPF (0-3)
[2021-12-06] MEDS ORDERED: Atorvastatin Calcium 40 MG TAB PO SCH (21:00)
[2021-12-07 05:04] LABS: Anion Gap 13 mmol/L (10-20); BUN (Urea Nitrogen) 10 mg/dL (9.8-20.1); Calc. Creatinine Clearance 34 mL/min (70-130); Calcium 9.1 mg/dL (7.8-10.44); Carbon Dioxide 19 mmol/L (23-31); Chloride 109 mmol/L (98-107); Glucose 92 mg/dL (80-115); Potassium 3.8 mmol/L (3.5-5.1); Sodium 137 mmol/L (136-145)
[2021-12-07 08:48] VITALS: TEMP 98.1
[2021-12-07] MEDS ORDERED: Losartan 25 MG TAB PO SCH (09:00)
[2021-12-07] MEDS ORDERED: Amlodipine 5 MG TAB PO SCH (09:00)
[2021-12-07] MEDS: Aspirin 81 mg Enteric Coated Tablet PO SCH (09:07)
[2021-12-07] MEDS: Ferrous Sulfate 325 MG TAB PO SCH (09:07)
[2021-12-07] MEDS: Clopidogrel Bisulfate 75 MG TAB PO SCH (09:07)
[2021-12-07 10:53] VITALS: BP 136/85
[2021-12-07] MEDS ORDERED: Ciprofloxacin 500 MG TAB PO SCH (20:00)
== END 2021-12-07 11:02 | disposition home health service (06) | DRG 65 ==
LOC: ERS 09:01 → 2SW 12:44 → OBSVTOIN 12-06 10:43
PROVIDERS: ADMIT Internal Medicine; ATTEND Internal Medicine
DX: I63.531 Cerebral infarction due to unspecified occlusion or stenosis of right posterior cerebral artery (principal); N17.9 Acute kidney failure, unspecified; E87.2 Acidosis; Z20.822 Contact with and (suspected) exposure to COVID-19; I10 Essential (primary) hypertension; E78.5 Hyperlipidemia, unspecified; K21.9 Gastro-esophageal reflux disease without esophagitis; I25.10 Atherosclerotic heart disease of native coronary artery without angina pectoris; F17.210 Nicotine dependence, cigarettes, uncomplicated; J45.909 Unspecified asthma, uncomplicated; E87.5 Hyperkalemia; R29.702 NIHSS score 2; D75.1 Secondary polycythemia; Z95.5 Presence of coronary angioplasty implant and graft; I25.2 Old myocardial infarction; Z95.1 Presence of aortocoronary bypass graft; Z79.899 Other long term (current) drug therapy; Z91.14 Patient's other noncompliance with medication regimen
CPT/HCPCS: 36415; 70450; 70496; 70498; 70551; 80048; 80053; 80061; 81001; 82553; 83605; 83690; 83735; 84443; 84484; 85025; 93005; 94760; 96374; J0360; U0003; U0005